=== PATIENT | male | born 1970 | race Caucasian/White ===

== ENCOUNTER 2017-02-19 08:52 | Inpatient (IN) ==
[2017-02-19 09:24] LABS: Bilirubin,Urine Negative (Negative); Blood,Urine Negative (Negative); Clarity,Urine Clear (Clear); Color,Urine Yellow (Yellow); Glucose,Urine (UA) Normal (Normal); Ketones,Urine Negative (Negative); Leukocyte Esterase,Urine Negative (Negative); Nitrite,Urine Negative (Negative); PH,Urine 5.5 pH Units (5.0-8.0); Protein,Urine Negative (Neg-Trace); Specific Gravity,Urine 1.023 (1.010-1.025); Urobilinogen,Urine Normal (Normal)
[2017-02-19] MEDS ORDERED: Ketorolac 30 MG/ML VIAL IVP ONE (11:16)
[2017-02-19] MEDS ORDERED: Ondansetron 4 MG/2 ML VIAL IVP ONE (11:16)
--- NOTE | 2017-02-19 11:22 | Emergency Department Note ---
Disposition Clinical Impression: Colonic mass Disposition: Admitted As Inpatient Referrals: Deandre Isbell DO [Primary Care Provider] - Forms: ED Satisfaction Letter Male Urogenital HPI - General Chief complaint: ED Urogenital-Male Stated complaint: poss bladder infection Time Seen by Provider: 02/19/17 09:11 Source: patient, family Mode of arrival: ambulatory Limitations: no limitations Nursing Notes Reviewed: Yes Vital Signs Reviewed: Yes - History of Present Illness HPI Narrative: Mr. Allen is a 46 yo male with no known PMHx who presents with a one week history of intermitent, sharp suprapubic pain. He states the pain comes and goes , is sharp when it happens, and causes him to double over. He localizes the pain to his suprapubic region and lower flank area. He does not feel the pain more on one side. He has had something similar in the past which resolved with a sand-like substance in his urine. He said he has a history of strong urine for which he drinks cranberry juice to resolve his symptoms. His SO at bedside states he has had this type of suprapubic discomfort on and off for 10 years. Patient has never seen a doctor for this problem. Patient has taken cleomycin from his this past week and drank cranberry juice to try to alleviate his symptoms. Nothing has really alleviate his discomfort, nor has anything exacerbated his pain. Patient denies any hematuria or dysuria. - Related Data Allergies Allergy/AdvReac Type Severity Reaction Status Date / Time No Known Allergies Allergy Verified 02/19/17 08:59 All systems ED: reviewed and negative except as stated. Constitutional: Denies: fever, weakness, weight change Genitourinary: Denies: urgency, dysuria, hematuria, discharge Past Medical History - Past Medical History Medical history: Reports: GERD, hypertension Surgical history: Reports: no surgical history - Social History Smoking Status: Current every day smoker Alcohol use: Reports: occasionally Drug use: Reports: none Physical Exam - General Limitations: no limitations General appearance: alert - Head Head exam: atraumatic, normocephalic - Eye Eye exam: Present: normal appearance - Chest Chest inspection: Present: normal inspection - Respiratory Respiratory exam: Present: normal lung sounds bilaterally. Absent: wheezes, stridor - Cardiovascular Cardiovascular exam: Present: regular rate. Absent: systolic murmur, rubs, gallop - Abdominal Exam Abdominal Exam: Present: soft, normal bowel sounds. Absent: distention, guarding, rebound Abdominal Tenderness: Present: suprapubic, mild - Back Exam Back exam: Present: other (Inferior flank pain bilaterally). Absent: CVA tenderness (R), CVA tenderness (L) - Neurological Exam Neurological exam: Present: alert, oriented X3 - Psychiatric Psychiatric exam: Present: normal affect - Skin Skin exam: Present: warm, dry Course Course Narrative: Mr. Allen is a 46 yo males with 1 week history of intermittent colicky suprapubic abdominal pain with vague history of lower bilateral flank pain. Patient seen in no acute distress. Patient's significant other reports he just had a very painful attack. Patient is hemodynamically stable. UA shows no blood , leukocytes, or glucose. Will order a CT scan of abdomen and pelvis without contrast to assess for kidney stone. Vital Signs Temperature 97.6 F 02/19/17 08:57 Pulse Rate 90 02/19/17 08:57 Respiratory Rate 18 02/19/17 08:57 Blood Pressure 148/92 02/19/17 08:57 O2 Sat by Pulse Oximetry 94 02/19/17 08:57 Temperature 97.6 F 02/19/17 08:57 Pulse Rate 92 02/19/17 12:52 Respiratory Rate 18 02/19/17 12:52 Blood Pressure 159/95 02/19/17 12:52 O2 Sat by Pulse Oximetry 96 02/19/17 12:52 Oxygen Delivery Oxygen Delivery Room Air Urogenital-Male - Medical Records Medical records reviewed: Yes I reviewed the patient's medical records. - Lab Data Lab results reviewed: Yes I reviewed the patient's lab results. Result diagrams: 02/19/17 11:33 02/19/17 11:33 Lab Results 02/19/17 02/19/17 02/19/17 Range/Units 09:05 11:33 11:33 WBC 10.8 (4.3-11.1) K/mcL RBC 5.52 H (4.19-5.50) M/mcL Hgb 15.9 (12.9-16.9) g/dL Hct 48.0 (37.5-50.1) % MCV 87.0 (83.0-100.0) fL MCH 28.8 (28.0-33.3) pg MCHC 33.1 (31.6-35.5) g/dL RDW 13.8 (11.5-14.5) % Plt Count 302 (140-400) K/mcL MPV 10.4 (9.4-12.4) fL Immature Gran % 0.6 (0-4) % Seg Neutrophils % 73.1 % Lymphocytes % 13.6 % Monocytes % 10.4 % Eosinophils % 1.8 % Basophils % 0.5 % Neutrophils # 7.9 (1.6-8.9) K/mcL Lymphocytes # 1.5 (0.6-4.6) K/mcL Monocytes # 1.1 (0.0-1.3) K/mcL Eosinophils # 0.2 (0.0-0.6) K/mcL Basophils # 0.1 (0.0-0.2) K/mcL Sodium 136 (136-145) mEq/L Potassium 3.8 (3.5-4.5) mEq/L Chloride 99 (98-109) mEq/L Carbon Dioxide 28 (19-29) mEq/L BUN 11 (8-26) mg/dL Creatinine 0.87 (0.72-1.25) mg/dL Est GFR ( Amer) > 60 (> 60) Est GFR (Non-Af Amer) > 60 (> 60) BUN/Creatinine Ratio 13 (6-26) Glucose 144 H (70-99) mg/dL Calculated Osmolality 284 (280-300) Calcium 9.5 (8.6-10.8) mg/dL Urine Color Yellow (Yellow) Urine Clarity Clear (Clear) Urine pH 5.5 (5.0-8.0) pH Units Ur Specific [place] 1.023 (1.010-1.025) Urine Protein Negative (Neg-Trace) mg/dL Urine Glucose (UA) Normal (Normal) mg/dL Urine Ketones Negative (Negative) mg/dL Urine Blood Negative (Negative) Urine Nitrite Negative (Negative) Urine Bilirubin Negative (Negative) Urine Urobilinogen Normal (Normal) mg/dL Ur Leukocyte Esterase Negative (Negative) Ur Culture Indicated? NO (NO) - Radiology Data Radiology results reviewed: Yes I reviewed the patient's radiology results. Abdomen/Pelvis CT 02/19/17 11:16 IMPRESSION: 1. Visualization of mass-like area in the rectosigmoid colon is highly suspicious for representing a neoplastic mass. Follow-up colonoscopy is recommended for more complete evaluation. 2. The abnormal mural thickening along superior margin of the anterior aspect of the urinary bladder raises the possibility of direct invasion/involvement of the bladder wall by suspected neoplastic mass. Cystoscopy may be helpful for more complete evaluation. D/ / 02/19/2017 12:26:12 Mathew Golden MD / fabio Interpreting Provider: Mathew Golden MD Attestation Statement - Attestation Attestation: I examined this patient and my medical decision-making was reviewed with the Resident Physician. I agree with the documented findings, disposition and treatment plan as described except to the extent set forth below. Patient is 46-year-old white male who presents to the emergency room today with his with a one-week history of suprapubic abdominal pain that has been intermittent and colicky in nature. Patient states he has been having mild intermittent episodes of this pain without significant urinary symptoms or change in urine color over the past week. states that this morning he woke up and had 10 out of 10 severe suprapubic abdominal pain which caused him to be diaphoretic and had some fleeting right-sided back pain associated with it. Patient denies any difficulty urinating, no dysuria or polyuria no urgency and no hematuria. Patient has no prior history of any problems. Patient denies any fevers or chills with these symptoms no nausea or vomiting, no abdominal pain or true flank pain. Patient with no other associated symptoms today and it was the severity of the pain that seemed to bring him in this morning. Physical exam findings as documented. Patient had an IV saline well-established was given pain medicines and worked up for symptoms that were suspicious for renal colic and possible kidney stone. Patient with no history of prior stones and no family history. His initial urinalysis came back completely normal with no sign of infection glucose or blood. Patient's CBC and BMP show mild hyperglycemia at 144 but otherwise within normal limits. Patient underwent noncontrast CT imaging for this suprapubic pain. Unfortunately the CT shows what appears to be an eroding mass in the rectosigmoid area with concern for erosion into the bladder wall. Findings concerning for malignancy. Patient has been hemodynamically stable throughout his ED course and at this time is resting comfortably following morphine administration. I spent time at the bedside discussing CT results with patient and his , and they agree with admission for further evaluation and treatment of CT findings. I will discuss the case with the hospitalist and patient will be admitted for further eval of rectosigmoid mass.
[2017-02-19 11:46] LABS: Basophils # 0.1 K/mcL (0.0-0.2); Basophils % 0.5 %; Eosinophils # 0.2 K/mcL (0.0-0.6); Eosinophils % 1.8 %; Hemoglobin 15.9 g/dL (12.9-16.9); Immature Granulocytes % 0.6 % (0-4); Lymphocytes # 1.5 K/mcL (0.6-4.6); Lymphocytes % 13.6 %; Mean Corpuscular HGB Conc 33.1 g/dL (31.6-35.5); Mean Corpuscular Hemoglobin 28.8 pg (28.0-33.3); Mean Platelet Volume 10.4 fL (9.4-12.4); Monocytes # 1.1 K/mcL (0.0-1.3); Monocytes % 10.4 %; Neutrophils # 7.9 K/mcL (1.6-8.9); Platelet Count 302 K/mcL (140-400); Red Blood Count 5.52 M/mcL (4.19-5.50); Red Cell Distribution Width 13.8 % (11.5-14.5); Segmented Neutrophils % 73.1 %
[2017-02-19 11:59] LABS: BUN/Creatinine Ratio 13 (6-26); Blood Urea Nitrogen 11 mg/dL (8-26); Calcium 9.5 mg/dL (8.6-10.8); Carbon Dioxide 28 mEq/L (19-29); Chloride 99 mEq/L (98-109); Glucose 144 mg/dL (70-99); Osmolality,Calculated 284 (280-300); Potassium 3.8 mEq/L (3.5-4.5); Sodium 136 mEq/L (136-145); eGFR For African Americans > 60 (> 60); eGFR For Non-African Americans > 60 (> 60)
[2017-02-19] MEDS ORDERED: *HR* Morphine 2 MG/ML SYRINGE IVP ONE (12:09)
[2017-02-19] MEDS ORDERED: Naloxone 0.4 MG/ML INJ IVP PRN (13:58)
[2017-02-19] MEDS ORDERED: *HR* HYDROcodone/Acet 5/325 mg TABLET PO PRN (14:03)
[2017-02-19] MEDS ORDERED: Ondansetron 4 MG/2 ML VIAL IVP PRN (14:03)
[2017-02-19] MEDS ORDERED: Acetaminophen 325 MG TABLET PO PRN (14:03)
[2017-02-19] MEDS ORDERED: Ondansetron ODT 4 MG TAB.RAPDIS SL PRN (14:03)
--- NOTE | 2017-02-19 14:55 | Internal Med History&Physical ---
Date of Encounter: 02/19/17 Time of Encounter: 14:52 Assessment and Plan (1) Abdominal pain Current visit: Yes Status: Acute Will admit the pt into Med Surg His abdominal pain mostly due to Recto sigmoid mass He does need Colonoscopy - for further eval I spoke to GI Dr. Le who is planning on doing colonoscopy in AM will put him on clear liquid diet for now started him on IV analgesics cont symptomatic and supportive care Spoke to pt and his at bed side and discussed about the plan of care Qualifiers: Qualified Code(s): R10.30 - Lower abdominal pain, unspecified (2) Colonic mass Current visit: Yes Status: Acute (3) Dysuria Current visit: Yes Status: Acute Reviewed CT of abd results Concern for Sigmoid mass invasing urinary bladder will consult Urology after GI evaluation cont supportive care for now Reviewed UA - no signs of inf no need of Abx No outlet obstruction noticed no need of bingham (4) Constipation due to outlet obstruction Current visit: Yes Status: Acute Does have moderate amount of stool could be due to his Recto sigmoid mass too will start him on stool softners scheduled for colonoscopy in AM (5) Hypertension Current visit: Yes Status: Acute Slightly uncontrolled due to pain cont home BP meds for now cont close monitoring Qualifiers: Qualified Code(s): I10 - Essential (primary) hypertension (6) DVT prophylaxis Current visit: Yes Status: Acute on SCD early ambulation recommended Internal Medicine - H&P: HPI Chief complaint: Lower abdominal pain Admitted From: Emergency Dept Plans for Post Hospital Care: Home History of present illness: Mr. Allen is a 46 year old male with known PMHx of HTN who presents with a one week history of intermittent, sharp supra pubic pain. He states the pain comes and goes, is sharp when it happens, and causes him to double over. He localizes the pain to his supra pubic region and lower flank area. Radiating to his groin with urination. He also mentioned he does have this kind of pain on and off for few months, but never was this bad. He also feels so relieved after each bowel movement. Denied any constipation / diarrhea. Past Med Surg Social Fam HX - Past Medical History Medical history: GERD, hypertension - Past Surgical History Surgical History: no surgical history - Social History Smoking Status: Current every day smoker Alcohol use: occasionally Drug use: none - Additional Family History Additional family history: Reviewed and non contribuitory to the current problem. Denied any rectal / colon cancer in the family Internal Medicine - H&P: Meds Losartan/HCTZ [Hyzaar 50-12.5 Tablet] 1 tab PO DAILY 02/19/17 [History] Omeprazole [PriLOSEC] 20 mg PO DAILY 02/19/17 [History] Allergies No Known Allergies Allergy (Verified 02/19/17 08:59) All Systems PM: A 10-system review of systems was performed and is negative for pertinent findings except as documented above in the HPI. Review of systems: All the systems are reviewed everything is benign except the systems and symptoms I mentioned in the history of present illness - Constitutional Vitals: Temp Pulse Resp BP Pulse Ox 97.6 F 93 18 161/92 99 02/19/17 08:57 02/19/17 14:05 02/19/17 14:05 02/19/17 14:05 02/19/17 14:05 General appearance: Present: mild distress, A&O X 3, answers questions appropriately - Head Head exam: Present: atraumatic, normal inspection - Neck Neck exam general surgery: Present: normal inspection, supple. Absent: lymphadenopathy - Respiratory Respiratory exam: Present: CTAB. Absent: accessory muscle use, rales, rhonchi, wheezes - Cardiovascular Cardiovascular exam: Present: gallop, RRR, +S1, +S2. Absent: diastolic murmur, systolic murmur - GI/Abdominal GI/Abdominal exam: Present: distended, normal bowel sounds, soft, tenderness ( Lower abdomen region). Absent: rebound, rigid - Extremities Exam Extremities exam: Absent: calf tenderness, pedal edema, tenderness - Back Exam Back exam: Absent: CVA tenderness (L), CVA tenderness (R) - Psychiatric Psychiatric exam: Present: normal affect, normal mood Internal Med - H&P Results - Labs CBC & Chem 7: 02/19/17 11:33 02/19/17 11:33 Labs: Reviewed.. UA also benign - Diagnostic Studies CT scan - abdomen Additional comments: 1. Visualization of mass-like area in the rectosigmoid colon is highly suspicious for representing a neoplastic mass. Follow-up colonoscopy is recommended for more complete evaluation. 2. The abnormal mural thickening along superior margin of the anterior aspect of the urinary bladder raises the possibility of direct invasion/involvement of the bladder wall by suspected neoplastic mass. Cystoscopy may be helpful for more complete evaluation.
[2017-02-19] MEDS: 0.9 % Sodium Chloride 1,000 ML IVC SCH (16:42)
[2017-02-19] MEDS: *HR* Morphine 2 MG/ML SYRINGE IVP PRN (17:49)
[2017-02-19] MEDS ORDERED: Polyethylene Glycol 3350 255 GM POWDER PO ONE (18:00)
[2017-02-19] MEDS: Famotidine 20 MG TABLET PO SCH (20:18)
[2017-02-20] MEDS: *HR* Morphine 2 MG/ML SYRINGE IVP PRN ×3 (00:05→11:09)
[2017-02-20] MEDS: 0.9 % Sodium Chloride 1,000 ML IVC SCH ×2 (02:50→11:49)
--- NOTE | 2017-02-20 09:05 | Gastroenterology Consult Note ---
<Fannie Sloan - Last Filed: 02/20/17 11:34> Date of Encounter: 02/20/17 Time of Encounter: 10:55 - Assessment and plan (1) Colonic mass Current Visit: Yes Status: Acute Assessment and plan: Cscope today for biopsy of suspected mass. (2) Abdominal pain Current Visit: Yes Status: Acute Qualifiers: Abdominal location: left lower quadrant Qualified Code(s): R10.32 - Left lower quadrant pain - Time Spent With Patient Total time spent is greater than 50% in coordination of care (as documented) at patient's floor/unit and/or counseling patient: less than 15 minutes GI History of Present Illness - Data of Consult Patient: new to practice Consult date: 02/20/17 Requesting Physician: Amber Curry MD - Consult Narrative Reason for consult: colonic mass History of present illness: Mr. Allen is a 46 year old male with no known PMHx who presents with a one week history of intermitent, sharp suprapubic pain. He states the pain comes and goes , is sharp when it happens, and causes him to double over. He localizes the pain to his suprapubic region and lower flank area. He does not feel the pain more on one side. He has had something similar in the past which resolved with a sand-like substance in his urine. He said he has a history of strong urine for which he drinks cranberry juice to resolve his symptoms. His SO at bedside states he has had this type of suprapubic discomfort on and off for 10 years. Patient has never seen a doctor for this problem. Patient has taken cleomycin from his this past week and drank cranberry juice to try to alleviate his symptoms. Nothing has really alleviated his discomfort, nor has anything exacerbated his pain. Patient denies any hematuria or dysuria. CT abd/pelvis without contrast in the ER showed a mass-like area in rectosigmoid colon that was highly suspicious for a neoplastic mass and abnormalities of the urinary bladder suspicious for possible direct invasion or involvement from the suspected colonic neoplastic mass. Patient states he has had frequent bowel movements and abd pain/cramping for 'years', 'all my life'. BM 4-5 x daily, loose stools brown in color, no black stools. Has seen [facility] in the past. Patient reports 'straining' to achieve a BM for 'years'. Colonoscopy: None EGD: None Past Med Surg Social Fam HX - Past Medical History Medical history: GERD, hypertension Psychiatric history: anxiety - Past Surgical History Surgical History: no surgical history - Social History Smoking Status: Current every day smoker Packs per day: 1-1.5 Alcohol use: occasionally Drug use: none - Family History Mother Living Status: Hx Family Cancer: Yes (UTERINE) - Gastrointestinal NSAID use: None Anticoagulation Use: None Number of BM Per Day: 4-5 Gastrointestinal: Present: abdominal pain, hematochezia, other Additional Comments: loose stools - Constitutional Constitutional: as per HPI - EENT Eyes: as per HPI Ears: Present: as per HPI Nose, mouth and throat: Present: as per HPI - Cardiovascular Cardiovascular ROS: Present: as per HPI - Respiratory Respiratory IM: Present: as per HPI - Neurological ROS Neurological GI: Present: as per HPI - Hematologic/Lymphatic Hematologic/Lymphatic pediatric: Present: as per HPI - Musculoskeletal Musculoskeletal ROS GI: Present: as per HPI - Integumentary Integumentary GI: Present: as per HPI - Psychiatric ROS Psychiatric GI: Present: as per HPI - Endocrine Endocrine IM: Present: as per HPI - Constitutional Vitals: Temp Pulse Resp BP Pulse Ox 97.8 F 89 18 162/101 97 02/20/17 07:10 02/20/17 07:10 02/20/17 07:10 02/20/17 07:10 02/20/17 07:10 General appearance: Present: cooperative, A&O X 3, no acute distress, answers questions appropriately - Head Head exam: Present: atraumatic, normocephalic - Eye Eye exam: Present: normal appearance, sclera anicteric - ENT ENT exam: Present: mucous membranes moist - Neck Neck exam general surgery: Present: normal inspection, trachea midline - Respiratory Respiratory exam: Present: CTAB - Cardiovascular Cardiovascular exam: Present: RRR, +S1, +S2 - GI/Abdominal GI/Abdominal exam: Present: normal bowel sounds, soft, tenderness, no peritoneal signs - Rectal Rectal exam: Present: deferred - Extremities Exam Extremities exam: Present: warm - Neurological Exam Neurological exam: Present: no focal deficits - Psychiatric Psychiatric exam: Present: normal affect, normal mood - Skin Skin exam: Present: dry, intact, normal color, warm Results - Labs CBC & Chem 7: 02/19/17 11:33 02/19/17 11:33 Labs: Last Result Calcium 9.5 mg/dL (8.6-10.8) 02/19/17 11:33 Entire Visit Hgb 15.9 g/dL (12.9-16.9) 02/19/17 11:33 Hct 48.0 % (37.5-50.1) 02/19/17 11:33 Consult Discharge Plan - Plan Referrals: Deandre Isbell DO [Primary Care Provider] - <Reza Le - Last Filed: 02/20/17 13:49> Date of Encounter: 02/20/17 Time of Encounter: 13:00 - Time Spent With Patient Total time spent is greater than 50% in coordination of care (as documented) at patient's floor/unit and/or counseling patient: GI History of Present Illness - Data of Consult Requesting Physician: Amber Curry MD - Consult Narrative History of present illness: Mr. Allen is a 46 year old male - Constitutional Vitals: Temp Pulse Resp BP Pulse Ox 98.2 F 90 20 153/79 95 02/20/17 12:40 02/20/17 12:40 02/20/17 12:40 02/20/17 12:40 02/20/17 12:40 Results - Labs CBC & Chem 7: 02/19/17 11:33 02/19/17 11:33 Labs: Last Result Calcium 9.5 mg/dL (8.6-10.8) 02/19/17 11:33 Entire Visit Hgb 15.9 g/dL (12.9-16.9) 02/19/17 11:33 Hct 48.0 % (37.5-50.1) 02/19/17 11:33 - Attending Attestation I examined this patient and my medical decision-making was reviewed with the Resident Physician. I agree with the documented findings, disposition and treatment plan as described except to the extent set forth below.
[2017-02-20] MEDS: Famotidine 20 MG TABLET PO SCH ×2 (09:12→20:37)
[2017-02-20] MEDS: Losartan/HCTZ 50-12.5 TABLET PO SCH (10:01)
--- NOTE | 2017-02-20 12:30 | Anesthesia Evaluation PreOp ---
Date of Encounter: 02/20/17 Time of Encounter: 12:30 - Past History Planned Operation: Colonoscopy Cardiac History: HTN, Hyperlipidemia Pulmonary History: Smoker MANAGER DRUG History: Denies Any Significant HX Other Medical History: GERD, Other (Obese) Anesthesia History: No Prior Anesthetic Complications Alcohol Use: occasionally Drug use: none Medications and Allergies Losartan/HCTZ [Hyzaar 50-12.5 Tablet] 1 tab PO DAILY 02/19/17 [History] Omeprazole [PriLOSEC] 20 mg PO DAILY 02/19/17 [History] Allergies No Known Allergies Allergy (Verified 02/19/17 08:59) - Meds/Allergy Pre-op Review Medications Reviewed: Yes Allergies Reviewed: Yes Beta Blockers on Current Med List: No Anesthesia Results - Labs 02/19/17 11:33 02/19/17 11:33 Anesthesia Exam O2 Sat Height 1.8 m Weight 120.4 kg Weight 121 kg O2 Sat by Pulse Oximetry 97 O2 Sat by Pulse Oximetry 97 O2 Sat by Pulse Oximetry 96 O2 Sat by Pulse Oximetry 98 O2 Sat by Pulse Oximetry 97 O2 Sat by Pulse Oximetry 99 O2 Sat by Pulse Oximetry 96 Vital Signs Temp Pulse Resp BP Pulse Ox 97.6 F 90 18 148/92 94 02/19/17 08:57 02/19/17 08:57 02/19/17 08:57 02/19/17 08:57 02/19/17 08:57 Height: 5'11 Weight: 265 lbs NPO (# of Hours): MN Pain Scale: 0 - HEENT Pupil (Motor): Pupils equal, EOMI Mallampati: III Teeth: Normal Oral Opening: Less than or equal to 3 - MANAGER DRUG LOC: Oriented MANAGER DRUG Motor: Normal RUE, Normal LUE, Normal RLE, Normal LLE, Normal Face MANAGER DRUG Sensory: Normal: RUE, LUE, RLE, LLE, Face - Cardiac Rhythm: Regular Murmur: None JVD: No Carotid Bruit: No - Pulmonary Breath Sounds: bilateral Clear Respiratory Effort: Symmetrical Anesthesia Assess/Plan ASA Score: 3 (HTN Tobacco Obese) Modified Kassidy Scale for Level of Consciousness: Cooperative, oriented, and tranquil Anesthetic Plan: MAC Monitoring Plan: Standard Monitors Recovery Plan: Other (Discussed MAC, agrees to proceed)
--- NOTE | 2017-02-20 17:35 | Internal Med Progress Note ---
Date of Encounter: 02/20/17 Time of Encounter: 08:50 - Assessment and plan (1) Colonic mass Current Visit: Yes Status: Acute Assessment and plan: Abdominal pain secondary to rectosigmoid mass CT abdomen and pelvis - mass in the rectosigmoid highly suspicious for neoplasm , abnormal mural thickening of the urinary bladder with possibility of invasion Gastroneurology consult - Dr. Le has done colonoscopy this morning Patient will need general surgery consult - discussed with Dr. Garcia Continue IV fluids, IV morphine as needed for pain, Pepcid, docusate (2) Constipation due to outlet obstruction Current Visit: Yes Status: Acute Assessment and plan: Secondary to rectosigmoid mass - continue stool softeners (3) Dysuria Current Visit: Yes Status: Acute Assessment and plan: Concern for sigmoid mass invading the urinary bladder Urology consult pending (4) Hypertension Current Visit: Yes Status: Chronic Assessment and plan: Essential hypertension - controlled, monitor, continue home meds Qualifiers: Hypertension type: essential hypertension Qualified Code(s): I10 - Essential (primary) hypertension (5) DVT prophylaxis Current Visit: Yes Status: Acute Assessment and plan: Continue SCDs, ambulate - Time Spent With Patient less than 15 minutes - Subjective Interval history: Examined this morning. Patient is awake and alert. Not in any distress. Complains of sharp suprapubic pain. It is intermittent. Rates it 6 out of 10. States this is been going on for months. Denies constipation or diarrhea. CT scan of the abdomen and pelvis revealed a mass in the rectosigmoid colon with abnormal mural thickening of the superior margin of the anterior aspect of the urinary bladder. Gastroenterology consulted, endoscopy has been done this morning. Patient will need general surgery consult. No other acute events or complaints. - Constitutional Vitals: Temp Pulse Resp BP Pulse Ox 98.3 F 83 16 138/90 97 02/20/17 14:00 02/20/17 14:00 02/20/17 14:00 02/20/17 14:00 02/20/17 14:00 General appearance: Present: A&O X 3, pleasant, no acute distress, answers questions appropriately - Head Head exam: Present: atraumatic - Eye Eye exam: Present: EOMI - Respiratory Respiratory exam: Absent: CTAB, rhonchi, stridor, wheezes - Cardiovascular Cardiovascular exam: Present: RRR, +S1, +S2 - GI/Abdominal GI/Abdominal exam: Present: soft, tenderness (Umbilical and suprapubic tenderness), no peritoneal signs. Absent: distended, firm, guarding, rigid - Extremities Exam Extremities exam: Present: radial pulses palpable and symetrical. Absent: cyanotic, pedal edema, tenderness - Neurological Exam Neurological exam: Present: alert, oriented X3, no focal deficits. Absent: facial droop, speech deficit Internal Medicine: Result - Labs CBC & Chem 7: 02/19/17 11:33 02/19/17 11:33 Consult Discharge Plan - Plan Referrals: Deandre Isbell DO [Primary Care Provider] -
[2017-02-20] MEDS ORDERED: Piperacillin/Tazobactam 3.375 GM in D5% in Water (Mini-Bag+) 100 ML IVPB STA (18:39)
--- NOTE | 2017-02-20 18:39 | General Surgery Consult Note ---
Date of Encounter: 02/20/17 Time of Encounter: 18:22 History of Present Illness Reason for consult: abdominal pain Requesting physician: Shaun Ghotra History of present illness: 46-year-old male referred to surgical services after presenting to the emergency department with approximately one-week history of suprapubic, sharp, stabbing pain. The patient complained of pain on urination. Apparently the symptoms have been waxing and waning for several months but in the last week had become particularly severe. He denies any fevers, chills, nausea, vomiting , constipation or diarrhea. CT of the abdomen and pelvis showed a normal- appearing appendix, moderate to large amount of stool within the colon and a mass like area involving the rectosigmoid. Several diverticula were also identified in this area. The dominant soft tissue nature of the findings was considered highly suspicious for a neoplasm. There was accompanying focal mural thickening of the superior aspect of the anterior urinary bladder that was immediately contiguous with this suspected mass. Several subcentimeter lymph nodes in the adjacent mesentery are described. Colonoscopy completed this morning by Dr. Le demonstrated an inflammatory mass responded to the CT findings. He was able to advance the scope beyond this mass and examine the remainder of the colon. The colonoscopy report is not available for my perusal , however, Dr Le's description of the findings suggested this mass appeared inflammatory instead of neoplastic. Past medical history: Gastritis/GERD; hypertension Surgical history: Tonsillectomy at age 7 Medications: Losartan and omeprazole Allergies: No known drug allergies Social history: Patient indicates that he quit smoking when he became ill ( approximately 1 week ago); advancement to at least 1 pack daily. He admits to alcohol approximately 3 times monthly. There is no acknowledged illicit drug use. Family history: Noncontributory. There is no known history of colon cancer or colon polyps Physical examination: Obese, age-appropriate male in no acute distress. He is comfortably seated in his hospital bed. The patient has been afebrile since admission, currently 98.3, pulse 83, respirations 16, blood pressure 138/90. SPO2 on room air 97%. He is 1.8 m tall, 120.4 kg, BMI 37.0 Skin: Warm without obvious jaundice Lungs: Clear to auscultation, no obvious abdominal pain on deep inspiration Cardiac: Regular rate, no appreciable murmurs Abdomen: Obese, tender left of midline extending to the left lower quadrant without a discernible intra-abdominal mass. The exam is limited by the patient's body habitus. Bowel sounds are active, there was no obvious rebound Extremities: Without obvious clubbing cyanosis or edema CT was personally reviewed with [facility]: White count 10.8, hemoglobin 15.9, hematocrit 48.0; platelet count 302,000; differential unremarkable Electrolytes, BUN and creatinine within normal limits Urinalysis was unremarkable - pH 5.5, Hand gravity 1.023; no glucose, ketones, blood, nitrates or bilirubin evident. No noted cellular count. Impression: A 46-year-old obese male with left lower quadrant abdominal pain and radiologic evidence of a mass at the rectosigmoid. There are concerning characteristics suggestive of neoplasm, however, colonoscopic examination suggestive of inflammatory mass such as diverticulitis. Biopsies were obtained at the time of colonoscopy, results are pending Recommendations: Maintain nothing by mouth for now Check CEA Await biopsy results Initiate antibiotic therapy Past Med Surg Social Fam HX - Past Medical History Medical history: GERD, hypertension Psychiatric history: anxiety - Past Surgical History Surgical History: no surgical history - Social History Smoking Status: Current every day smoker Packs per day: 1-1.5 Alcohol use: occasionally Drug use: none - Family History Mother Living Status: Hx Family Cancer: Yes (UTERINE) Medications and Allergies Losartan/HCTZ [Hyzaar 50-12.5 Tablet] 1 tab PO DAILY 02/19/17 [History] Omeprazole [PriLOSEC] 20 mg PO DAILY 02/19/17 [History] Allergies No Known Allergies Allergy (Verified 02/19/17 08:59) Review of Systems All systems PM: A 10-system review of systems was performed and is negative for pertinent findings except as documented above in the HPI. General Surgery Exam Initial Vital Signs Temp Pulse Resp BP Pulse Ox 97.6 F 90 18 148/92 94 02/19/17 08:57 02/19/17 08:57 02/19/17 08:57 02/19/17 08:57 02/19/17 08:57 Exam Initial Vital Signs Temp Pulse Resp BP Pulse Ox 97.6 F 90 18 148/92 94 02/19/17 08:57 02/19/17 08:57 02/19/17 08:57 02/19/17 08:57 02/19/17 08:57 Results - Labs 02/19/17 11:33 02/19/17 11:33 Abnormal lab results RBC 5.52 M/mcL (4.19-5.50) H 02/19/17 11:33 Glucose 144 mg/dL (70-99) H 02/19/17 11:33 All other labs normal. Consult Discharge Plan - Plan Referrals: Deandre Isbell DO [Primary Care Provider] -
[2017-02-20] MEDS: MetroNIDAZOLE 500 MG/100 ML 500 MG/100 ML BAG IVPB SCH (20:37)
[2017-02-20] MEDS: Piperacillin/Tazobactam 3.375 GM in D5% in Water (Mini-Bag+) 100 ML IVPB SCH (21:34)
[2017-02-21] MEDS: MetroNIDAZOLE 500 MG/100 ML 500 MG/100 ML BAG IVPB SCH ×5 (01:02→17:31)
[2017-02-21] MEDS: *HR* Morphine 2 MG/ML SYRINGE IVP PRN (01:04)
[2017-02-21] MEDS: Piperacillin/Tazobactam 3.375 GM in D5% in Water (Mini-Bag+) 100 ML IVPB SCH ×3 (02:01→19:14)
[2017-02-21 03:32] LABS: Basophils % 0.1 %; Eosinophils # 0.2 K/mcL (0.0-0.6); Eosinophils % 2.3 %; Hematocrit 41.7 % (37.5-50.1); Immature Granulocytes % 0.5 % (0-4); Lymphocytes # 1.8 K/mcL (0.6-4.6); Lymphocytes % 22.1 %; Mean Corpuscular HGB Conc 33.3 g/dL (31.6-35.5); Mean Corpuscular Hemoglobin 29.3 pg (28.0-33.3); Mean Platelet Volume 10.2 fL (9.4-12.4); Monocytes # 0.9 K/mcL (0.0-1.3); Monocytes % 11.2 %; Neutrophils # 5.1 K/mcL (1.6-8.9); Platelet Count 261 K/mcL (140-400); Red Blood Count 4.74 M/mcL (4.19-5.50); Red Cell Distribution Width 13.8 % (11.5-14.5); Segmented Neutrophils % 63.8 %
[2017-02-21 03:38] LABS: Hemoglobin 13.9 g/dL (12.9-16.9)
[2017-02-21 03:48] LABS: Alanine Aminotransferase 37 Units/L (0-55); Albumin 2.9 g/dL (3.5-5.0); Albumin/Globulin Ratio 0.9 (1.1-2.2); Alkaline Phosphatase 91 Units/L (38-126); Aspartate Amino Transferase 18 Units/L (5-34); BUN/Creatinine Ratio 10 (6-26); Bilirubin,Total 0.7 mg/dL (0.2-1.2); Blood Urea Nitrogen 8 mg/dL (8-26); Calcium 8.6 mg/dL (8.6-10.8); Carbon Dioxide 28 mEq/L (19-29); Chloride 102 mEq/L (98-109); Globulin 3.3 g/dL (2.4-3.5); Glucose 114 mg/dL (70-99); Osmolality,Calculated 285 (280-300); Potassium 3.5 mEq/L (3.5-4.5); Sodium 138 mEq/L (136-145); Total Protein 6.2 g/dL (6.0-8.3); eGFR For African Americans > 60 (> 60); eGFR For Non-African Americans > 60 (> 60)
[2017-02-21 04:08] LABS: Carcinoembryonic Antigen 1.8 ng/mL (0-5.0)
[2017-02-21] MEDS: 0.9 % Sodium Chloride 1,000 ML IVC SCH ×3 (05:31→19:16)
[2017-02-21] MEDS: Famotidine 20 MG TABLET PO SCH ×2 (10:24→21:59)
[2017-02-21] MEDS: Losartan/HCTZ 50-12.5 TABLET PO SCH (10:24)
--- NOTE | 2017-02-21 14:17 | Internal Med Progress Note ---
Date of Encounter: 02/21/17 Time of Encounter: 08:50 - Assessment and plan (1) Colonic mass Current Visit: Yes Status: Acute Assessment and plan: Abdominal pain secondary to rectosigmoid mass - CT abdomen and pelvis - mass in the rectosigmoid highly suspicious for neoplasm , abnormal mural thickening of the urinary bladder with possibility of invasion Gastroneurology consult - Dr. Le has done colonoscopy - which revealed an inflammatory mass General surgery consult - discussed with Dr. Garcia - will schedule for surgery later this week Continue IV fluids, IV morphine as needed for pain, Pepcid, docusate IV Flagyl, Zosyn (2) Constipation due to outlet obstruction Current Visit: Yes Status: Acute Assessment and plan: Secondary to rectosigmoid mass - continue stool softeners (3) Dysuria Current Visit: Yes Status: Acute Assessment and plan: Symptoms have now resolved - Concern for sigmoid mass invading the urinary bladder Will consult urology if needed (4) Hypertension Current Visit: Yes Status: Chronic Assessment and plan: Essential hypertension, controlled, monitor, continue home meds Qualifiers: Hypertension type: essential hypertension Qualified Code(s): I10 - Essential (primary) hypertension (5) DVT prophylaxis Current Visit: Yes Status: Acute Assessment and plan: Continue SCDs, ambulate - Time Spent With Patient less than 15 minutes - Subjective Interval history: Examined this morning. Patient is awake and alert. Not in any distress. Patient states his abdominal pain has now improved. Says he is hungry. Denies constipation or diarrhea. No other acute events or complaints. CT scan of the abdomen and pelvis revealed a mass in the rectosigmoid colon with abnormal mural thickening of the superior margin of the anterior aspect of the urinary bladder. Colonoscopy demonstrated an inflammatory mass. Patient has been evaluated by Dr. Nickerson, who will schedule for surgery later this week. - Constitutional Vitals: Temp Pulse Resp BP Pulse Ox 98.1 F 67 16 125/70 96 02/21/17 10:57 02/21/17 10:57 02/21/17 10:57 02/21/17 10:57 02/21/17 10:57 General appearance: Present: A&O X 3, pleasant, no acute distress, answers questions appropriately - Head Head exam: Present: atraumatic - Eye Eye exam: Present: EOMI - Neck Neck exam general surgery: Present: supple - Respiratory Respiratory exam: Present: CTAB. Absent: rales, rhonchi, stridor, wheezes, tachypnea - Cardiovascular Cardiovascular exam: Present: RRR, +S1, +S2 - GI/Abdominal GI/Abdominal exam: Present: soft, no peritoneal signs. Absent: distended, firm , guarding, rigid, tenderness - Extremities Exam Extremities exam: Present: radial pulses palpable and symetrical. Absent: cyanotic, pedal edema, tenderness - Neurological Exam Neurological exam: Present: alert, oriented X3, no focal deficits. Absent: facial droop, speech deficit Internal Medicine: Result - Labs CBC & Chem 7: 02/21/17 03:15 02/21/17 03:15 Labs: Short CBC 02/21/17 Range/Units 03:15 WBC 8.0 (4.3-11.1) K/mcL Hgb 13.9 D (12.9-16.9) g/dL Hct 41.7 (37.5-50.1) % Plt Count 261 (140-400) K/mcL Neutrophils # 5.1 (1.6-8.9) K/mcL BMP 02/21/17 03:15 Sodium 138 Potassium 3.5 Chloride 102 Carbon Dioxide 28 BUN 8 Creatinine 0.84 Glucose 114 H Calcium 8.6 Liver Function 02/21/17 Range/Units 03:15 Total Bilirubin 0.7 (0.2-1.2) mg/dL AST 18 (5-34) Units/L ALT 37 (0-55) Units/L Alkaline Phosphatase 91 (38-126) Units/L Albumin 2.9 L (3.5-5.0) g/dL Consult Discharge Plan - Plan Referrals: Deandre sIbell DO [Primary Care Provider] -
--- NOTE | 2017-02-21 14:42 | General Surgery Progress Note ---
Date of Encounter: 02/21/17 Time of Encounter: 14:37 Subjective Patient reports: feels better, pain is less Narrative: General Surgery - patient feeling better, indicates pain has resolved. Tolerating clear liquids; passing flatus; +diarrhea Afebrile, currently 98.1, pulse 67, respirations 16, blood pressure 125/70 Lungs: Clear, no obvious abdominal pain with deep inspiration Abdomen: Soft with minimal tenderness left suprapubic/left lower quadrant. Tenderness has diminished since my exam yesterday. Active bowel sounds. Laboratories: White count 8.0; hemoglobin 13.9, hematocrit 41.7; platelet count 261,000; differential remains within normal limits Electrolytes, BUN, creatinine within normal limits, potassium is borderline at 3.5. LFTs within normal limits; CEA 1.8 Pathology pending Impression: Inflammatory mass rectosigmoid - awaiting pathology results Left lower quadrant abdominal pain improved Plan: Allow full liquid diet Continue to monitor status; low anterior resection discussed in detail. Objective Vital Signs - Last 8 Hours Temp Pulse Resp BP Pulse Ox 02/21/17 10:57 98.1 F 67 16 125/70 96 Intake and Output 02/20/17 02/21/17 02/21/17 23:59 07:59 15:59 Intake Total 100 / 100 1200 / 1200 0 / 0 Output Total 0 / 0 0 / 0 Balance 100 / 100 1200 / 1200 0 / 0 Intake: IV Fluids 100 / 100 1200 / 1200 0.9 % Sodium Chloride 1, 1000 / 1000 000 ML @ 100 mls/hr IVC . Q10H [facility] Rx#:[id number] Flagyl Premix 500 MG/100 100 / 100 100 / 100 ML 500 mg In 100 ml @ 100 mls/hr IVPB Q6H [facility] Rx#: [id number] Zosyn 3.375 GM In 100 / 100 Dextrose 5% (Minibag+) 100 ML 100 ML @ 25 mls/hr IVPB Q8H [facility] Rx#: [id number] Oral 0 / 0 0 / 0 Output: Urine 0 / 0 0 / 0 Other: Meal NPO NPO Percent of Meal Consumed 0% 0% Weight 120.202 kg Blood Glucose* 90 Patient Weight 02/21/17 23:59 Weight 120.202 kg - Labs 02/21/17 03:15 02/21/17 03:15 Diabetes panel 02/21/17 Range/Units 03:15 Sodium 138 (136-145) mEq/L Potassium 3.5 (3.5-4.5) mEq/L Chloride 102 (98-109) mEq/L Carbon Dioxide 28 (19-29) mEq/L BUN 8 (8-26) mg/dL Creatinine 0.84 (0.72-1.25) mg/dL Glucose 114 H (70-99) mg/dL Calcium 8.6 (8.6-10.8) mg/dL AST 18 (5-34) Units/L ALT 37 (0-55) Units/L Alkaline Phosphatase 91 (38-126) Units/L Albumin 2.9 L (3.5-5.0) g/dL Calcium panel 02/21/17 Range/Units 03:15 Calcium 8.6 (8.6-10.8) mg/dL Albumin 2.9 L (3.5-5.0) g/dL Pituitary panel 02/21/17 Range/Units 03:15 Sodium 138 (136-145) mEq/L Potassium 3.5 (3.5-4.5) mEq/L Chloride 102 (98-109) mEq/L Carbon Dioxide 28 (19-29) mEq/L BUN 8 (8-26) mg/dL Creatinine 0.84 (0.72-1.25) mg/dL Glucose 114 H (70-99) mg/dL Calcium 8.6 (8.6-10.8) mg/dL Adrenal panel 02/21/17 Range/Units 03:15 Sodium 138 (136-145) mEq/L Potassium 3.5 (3.5-4.5) mEq/L Chloride 102 (98-109) mEq/L Carbon Dioxide 28 (19-29) mEq/L BUN 8 (8-26) mg/dL Creatinine 0.84 (0.72-1.25) mg/dL Glucose 114 H (70-99) mg/dL Calcium 8.6 (8.6-10.8) mg/dL Total Bilirubin 0.7 (0.2-1.2) mg/dL AST 18 (5-34) Units/L ALT 37 (0-55) Units/L Alkaline Phosphatase 91 (38-126) Units/L Albumin 2.9 L (3.5-5.0) g/dL Consult Discharge Plan - Plan Referrals: Deandre Isbell DO [Primary Care Provider] -
[2017-02-22] MEDS: MetroNIDAZOLE 500 MG/100 ML 500 MG/100 ML BAG IVPB SCH ×4 (00:47→20:02)
[2017-02-22] MEDS: Piperacillin/Tazobactam 3.375 GM in D5% in Water (Mini-Bag+) 100 ML IVPB SCH ×3 (03:51→20:02)
[2017-02-22 04:13] LABS: Basophils % 0.4 %; Eosinophils # 0.2 K/mcL (0.0-0.6); Eosinophils % 2.7 %; Hematocrit 38.4 % (37.5-50.1); Immature Granulocytes % 0.3 % (0-4); Lymphocytes % 25.4 %; Mean Corpuscular HGB Conc 33.9 g/dL (31.6-35.5); Mean Corpuscular Hemoglobin 29.6 pg (28.0-33.3); Mean Corpuscular Volume 87.5 fL (83.0-100.0); Mean Platelet Volume 10.5 fL (9.4-12.4); Monocytes # 0.8 K/mcL (0.0-1.3); Monocytes % 10.9 %; Neutrophils # 4.7 K/mcL (1.6-8.9); Platelet Count 241 K/mcL (140-400); Red Blood Count 4.39 M/mcL (4.19-5.50); Red Cell Distribution Width 13.8 % (11.5-14.5); Segmented Neutrophils % 60.3 %
[2017-02-22 04:14] LABS: INR 1.1; Prothrombin Time 11.9 Seconds (9.4-12.1)
[2017-02-22] MEDS: Losartan/HCTZ 50-12.5 TABLET PO SCH (07:37)
[2017-02-22] MEDS: Famotidine 20 MG TABLET PO SCH ×2 (07:38→22:35)
[2017-02-22] MEDS: 0.9 % Sodium Chloride 1,000 ML IVC SCH (09:02)
--- NOTE | 2017-02-22 13:59 | General Surgery Progress Note ---
Date of Encounter: 02/22/17 Time of Encounter: 13:55 Subjective Patient reports: feels better, tolerating liquids well Narrative: General Surgery - patient feeling much improved; requesting regular diet Afebrile, currently 97.7, pulse 75, respirations 18, blood pressure 137/93. Left lower quadrant abdominal pain resolved Lungs: Clear Abdomen: Obese but soft, nontender Endoscopy pathology pending Laboratories: White count 7.7, hemoglobin 13.0, hematocrit 38.4. Impression: Mass rectosigmoid of undetermined etiology. Neoplastic versus inflammatory. Awaiting pathology/colonic biopsies obtained during recent colonoscopy Plan: Repeat CT abdomen and pelvis with oral and IV contrast in the a.m. Maintain full liquid diet for the time being Objective Vital Signs - Last 8 Hours Temp Pulse Resp BP Pulse Ox 02/22/17 11:43 97.7 F 75 18 137/93 96 02/22/17 07:33 97.5 F L 73 18 122/84 95 Intake and Output 02/21/17 02/22/17 02/22/17 23:59 07:59 15:59 Intake Total 1500 / 1500 1500 / 1500 580 / 580 Output Total 550 / 550 900 / 900 Balance 950 / 950 600 / 600 580 / 580 Intake: IV Fluids 900 / 900 1500 / 1500 0.9 % Sodium Chloride 1, 900 / 900 1000 / 1000 000 ML @ 100 mls/hr IVC . Q10H [facility] Rx#:[id number] Flagyl Premix 500 MG/100 300 / 300 ML 500 mg In 100 ml @ 100 mls/hr IVPB Q6H [facility] Rx#: [id number] Zosyn 3.375 GM In 200 / 200 Dextrose 5% (Minibag+) 100 ML 100 ML @ 25 mls/hr IVPB Q8H [facility] Rx#: [id number] Oral 600 / 600 580 / 580 Output: Urine 550 / 550 900 / 900 Other: Meal Dinner Breakfast Weight 120.95 kg Patient Weight 02/22/17 23:59 Weight 120.95 kg - Labs 02/22/17 03:50 02/21/17 03:15 Consult Discharge Plan - Plan Referrals: Deandre Isbell DO [Primary Care Provider] -
--- NOTE | 2017-02-22 14:13 | Internal Med Progress Note ---
Date of Encounter: 02/22/17 Time of Encounter: 09:30 - Assessment and plan (1) Colonic mass Current Visit: Yes Status: Acute Assessment and plan: Abdominal pain secondary to rectosigmoid mass CT abdomen and pelvis - mass in the rectosigmoid highly suspicious for neoplasm , abnormal mural thickening of the urinary bladder with possibility of invasion Gastroneurology consult - Dr. Le has done colonoscopy - which revealed an inflammatory mass General surgery consult - discussed with Dr. Garcia - will schedule for surgery later this week Continue IV fluids, IV morphine as needed for pain, Pepcid, docusate IV Flagyl, Zosyn, full liquid diet Pathology report pending (2) Constipation due to outlet obstruction Current Visit: Yes Status: Acute Assessment and plan: Secondary to rectosigmoid mass - continue stool softeners (3) Dysuria Current Visit: Yes Status: Acute Assessment and plan: Symptoms have now resolved - Concern for sigmoid mass invading the urinary bladder Will consult urology if needed (4) Hypertension Current Visit: Yes Status: Chronic Assessment and plan: Essential hypertension, controlled, monitor, continue home meds Qualifiers: Hypertension type: essential hypertension Qualified Code(s): I10 - Essential (primary) hypertension (5) DVT prophylaxis Current Visit: Yes Status: Acute Assessment and plan: Continue SCDs, ambulate - Time Spent With Patient 25 - 35 minutes - Subjective Interval history: Examined this morning. Patient is awake and alert. Not in any distress. Patient states his abdominal pain has now improved. Tolerating full liquid diet. Denies constipation or diarrhea. No other acute events or complaints. CT scan of the abdomen and pelvis revealed a mass in the rectosigmoid colon with abnormal mural thickening of the superior margin of the anterior aspect of the urinary bladder. Colonoscopy demonstrated an inflammatory mass. Patient has been evaluated by Dr. Garcia, who will schedule for surgery later this week. Pathology report pending. - Constitutional Vitals: Temp Pulse Resp BP Pulse Ox 97.7 F 75 18 137/93 96 02/22/17 11:43 02/22/17 11:43 02/22/17 11:43 02/22/17 11:43 02/22/17 11:43 General appearance: Present: A&O X 3, pleasant, no acute distress, answers questions appropriately - Head Head exam: Present: atraumatic - Eye Eye exam: Present: EOMI - ENT ENT exam: Present: mucous membranes moist - Neck Neck exam general surgery: Present: supple - Respiratory Respiratory exam: Present: CTAB. Absent: rales, rhonchi, stridor, wheezes, tachypnea - Cardiovascular Cardiovascular exam: Present: RRR, +S1, +S2 - GI/Abdominal GI/Abdominal exam: Present: soft, no peritoneal signs. Absent: distended, firm , guarding, rigid, tenderness - Extremities Exam Extremities exam: Present: radial pulses palpable and symetrical. Absent: cyanotic, pedal edema, tenderness - Neurological Exam Neurological exam: Present: alert, oriented X3, no focal deficits Internal Medicine: Result - Labs CBC & Chem 7: 02/22/17 03:50 02/21/17 03:15 Labs: Short CBC 02/22/17 Range/Units 03:50 WBC 7.7 (4.3-11.1) K/mcL Hgb 13.0 (12.9-16.9) g/dL Hct 38.4 (37.5-50.1) % Plt Count 241 (140-400) K/mcL Neutrophils # 4.7 (1.6-8.9) K/mcL - ABG Interpretation ABG results: PT/INR, D-dimer PT 11.9 Seconds (9.4-12.1) 02/22/17 03:50 Consult Discharge Plan - Plan Referrals: Deandre Isbell DO [Primary Care Provider] -
[2017-02-23] MEDS ORDERED: 0.9 % Sodium Chloride 1,000 ML ONE ×2 (00:11→12:08)
[2017-02-23] MEDS: MetroNIDAZOLE 500 MG/100 ML 500 MG/100 ML BAG IVPB SCH ×4 (00:14→18:32)
[2017-02-23] MEDS: Piperacillin/Tazobactam 3.375 GM in D5% in Water (Mini-Bag+) 100 ML IVPB SCH ×3 (03:58→18:39)
[2017-02-23] MEDS: Famotidine 20 MG TABLET PO SCH ×2 (08:28→21:15)
[2017-02-23] MEDS: Losartan/HCTZ 50-12.5 TABLET PO SCH (08:28)
[2017-02-23] MEDS ORDERED: *HR* Propofol 500 MG/50 ML BOTTLE IVC ONE (09:55)
[2017-02-23] MEDS ORDERED: Lidocaine -MPF 2% 5 ML VIAL INFILT ONE (09:55)
--- NOTE | 2017-02-23 13:45 | Internal Med Progress Note ---
Date of Encounter: 02/23/17 Time of Encounter: 08:40 - Assessment and plan (1) Colonic mass Current Visit: Yes Status: Acute Assessment and plan: Abdominal pain - secondary to rectosigmoid mass CT abdomen and pelvis - mass in the rectosigmoid highly suspicious for neoplasm , abnormal mural thickening of the urinary bladder with possibility of invasion Gastroneurology consult - Dr. Le has done colonoscopy - which revealed an inflammatory mass General surgery consult - discussed with Dr. Garcia - will schedule for surgery Continue IV fluids, IV morphine as needed for pain, Pepcid, docusate IV Flagyl, Zosyn, full liquid diet Pathology report reveals hyperplastic polyp (2) Constipation due to outlet obstruction Current Visit: Yes Status: Acute Assessment and plan: Secondary to rectosigmoid mass - continue stool softeners (3) Dysuria Current Visit: Yes Status: Acute Assessment and plan: Symptoms have now resolved - Concern for sigmoid mass invading the urinary bladder Will consult urology if needed (4) Hypertension Current Visit: Yes Status: Chronic Assessment and plan: Essential hypertension, controlled, monitor, continue home meds Qualifiers: Hypertension type: essential hypertension Qualified Code(s): I10 - Essential (primary) hypertension (5) DVT prophylaxis Current Visit: Yes Status: Acute Assessment and plan: Continue SCDs, ambulate - Time Spent With Patient 25 - 35 minutes - Subjective Interval history: Examined this morning. Patient is awake and alert. Not in any distress. Denies chest pain or shortness of breath. Complains of of abdominal pain that is cramping at times. Complains of mild diarrhea. No fever. No other acute events or complaints. CT scan of the abdomen and pelvis revealed a mass in the rectosigmoid colon with abnormal mural thickening of the superior margin of the anterior aspect of the urinary bladder. Colonoscopy demonstrated an inflammatory mass. Patient has been evaluated by Dr. Garcia, who will schedule for surgery later this week. Pathology report reveals hyperplastic polyp. - Constitutional Vitals: Temp Pulse Resp BP Pulse Ox 97.9 F 67 15 142/92 98 02/23/17 12:20 02/23/17 12:20 02/23/17 12:20 02/23/17 12:20 02/23/17 12:20 General appearance: Present: A&O X 3, pleasant, no acute distress, answers questions appropriately - Head Head exam: Present: atraumatic - Eye Eye exam: Present: EOMI - ENT ENT exam: Present: mucous membranes moist - Neck Neck exam general surgery: Present: supple - Respiratory Respiratory exam: Present: CTAB. Absent: rhonchi, stridor, wheezes, tachypnea - Cardiovascular Cardiovascular exam: Present: RRR, +S1, +S2 - GI/Abdominal GI/Abdominal exam: Present: soft, tenderness (Mild umbilical region tenderness) , no peritoneal signs. Absent: distended, firm, guarding, rigid - Extremities Exam Extremities exam: Present: radial pulses palpable and symetrical. Absent: cyanotic, pedal edema, tenderness - Neurological Exam Neurological exam: Present: alert, oriented X3, no focal deficits Internal Medicine: Result - Labs CBC & Chem 7: 02/22/17 03:50 02/21/17 03:15 - ABG Interpretation ABG results: PT/INR, D-dimer PT 11.9 Seconds (9.4-12.1) 02/22/17 03:50 - Impressions Impressions Abdomen/Pelvis CT 02/23/17 09:30 IMPRESSION: Large area of abnormal soft tissue density in the region of the sigmoid colon with lobulated margins extending into the lumen. This is concerning for a large neoplasm. There is associated stranding in the adjacent fat and numerous sigmoid diverticula. There are also numerous associated small adjacent lymph nodes. There is questionable wall thickening in a short segment of small bowel adjacent to the rightward aspect of this lesion. There is also questionable wall thickening in the dome of the bladder. D/ / Josh Davis / Josh Davis Interpreting Provider: Josh Davis Consult Discharge Plan - Plan Referrals: Deandre Isbell DO [Primary Care Provider] -
[2017-02-23] MEDS: 0.9 % Sodium Chloride 1,000 ML IVC SCH (18:33)
--- NOTE | 2017-02-23 22:19 | General Surgery Progress Note ---
Date of Encounter: 02/23/17 Time of Encounter: 22:09 Subjective Narrative: General Surgery - this is a delayed dictation as the patient was initially seen and evaluated approx [address] reviewed with [facility]. The CT of the abd/pelvis is essentially unchanged with comparison to study dated 02/19. Colonoscopic biopsies show hyperplastic tissue - with the neoplasm detected. Despite these results, neoplasm cannot be excluded The CT shows a large area of abnormal soft tissue density in the region of the sigmoid colon. Lobulated margins extending into the lumen are described but these findings were not completely observed on recent colonoscopy. Associated stranding into the adjacent fat with numerous sigmoid diverticula. is Numerous associated small adjacent lymph nodes persist but may be reactive to the adjacent inflammation rather than indicative of neoplasm. Possible wall thickening and a short segment of small bowel immediately adjacent to the sigmoid colon as well as wall thickening in the dome of the bladder also adjacent to the sigmoid colon is again noted. Unable to differentiate whether these are responses to adjacent inflammation or a Neoplastic process. An extended discussion was completed with the patient. He feels well, previous complaints of crampy abdominal pain following a full liquid meal have subsided. Patient has no complaints this evening. Surgery to be scheduled in the next few days. We have again discussed open sigmoid colectomy with planned colo colonic anastomosis. Possible end colostomy was also discussed. Objective Vital Signs - Last 8 Hours Temp Pulse Resp BP Pulse Ox 02/23/17 19:31 98.4 F 72 15 127/80 96 02/23/17 14:56 98.5 F 68 15 129/87 98 Intake and Output 02/23/17 02/23/17 02/23/17 07:59 15:59 23:59 Intake Total 200 / 200 300 / 300 580 / 580 Output Total 150 / 150 450 / 450 0 / 0 Balance 50 / 50 -150 / -150 580 / 580 Intake: IV Fluids 200 / 200 300 / 300 100 / 100 Flagyl Premix 500 MG/100 200 / 200 100 / 100 ML 500 mg In 100 ml @ 100 mls/hr IVPB Q6H [facility] Rx#: [id number] Zosyn 3.375 GM In 200 / 200 100 / 100 Dextrose 5% (Minibag+) 100 ML 100 ML @ 25 mls/hr IVPB Q8H [facility] Rx#: [id number] Oral 0 / 0 0 / 0 480 / 480 Output: Urine 150 / 150 450 / 450 0 / 0 Other: Meal NPO Dinner # Voids 1 Blood Glucose* 90 - Labs 02/22/17 03:50 02/21/17 03:15 Consult Discharge Plan - Plan Referrals: Deandre Isbell DO [Primary Care Provider] -
[2017-02-24] MEDS: MetroNIDAZOLE 500 MG/100 ML 500 MG/100 ML BAG IVPB SCH ×4 (00:24→18:38)
[2017-02-24] MEDS: Piperacillin/Tazobactam 3.375 GM in D5% in Water (Mini-Bag+) 100 ML IVPB SCH ×3 (03:30→18:38)
[2017-02-24] MEDS: Famotidine 20 MG TABLET PO SCH ×2 (08:29→21:02)
[2017-02-24] MEDS: Losartan/HCTZ 50-12.5 TABLET PO SCH (08:29)
--- NOTE | 2017-02-24 12:00 | General Surgery Progress Note ---
Date of Encounter: 02/24/17 Time of Encounter: 11:54 Subjective Narrative: General Surgery - feeling well, no compliants Anxious to proceed with surgery. Lungs:clear bilaterally Cardiac: regular rate, no appreciable murmurs Abdomen: obese, soft, non tender. No appreciable intra abdominal masses. No rebound CT abdomen and pelvis completed yesterday was reviewed with [facility] The findings were discussed in detail with the patient Surgery - open sigmoid colectomy or low anterior resection was discussed in detail once again. Offers to consider laparoscopic or robotic surgery were declined. The procedure was discussed in detail. Risks include hemorrhage, infection, intra-abdominal abscess, injury to adjacent organs such as adjacent bowel, bladder, ureters, spleen, pneumonia/respiratory failure, cardiac dysrhythmia, DE. We also discussed potential for a colostomy, and anastomotic leak, stricture, or disruption should a colocolonic anastomosis be created. The patient expressed understanding, I attempted to answer all his questions, surgery is planned for the a.m. Consent has been obtained. Objective Vital Signs - Last 8 Hours Temp Pulse Resp BP Pulse Ox 02/24/17 10:39 97.6 F 106 16 125/87 97 02/24/17 06:36 98.3 F 87 16 119/84 98 02/24/17 04:40 98.0 F 82 16 117/80 98 Intake and Output 02/23/17 02/24/17 02/24/17 23:59 07:59 15:59 Intake Total 680 / 680 100 / 100 560 / 560 Output Total 0 / 0 Balance 680 / 680 100 / 100 560 / 560 Intake: IV Fluids 200 / 200 100 / 100 200 / 200 Flagyl Premix 500 MG/100 100 / 100 100 / 100 100 / 100 ML 500 mg In 100 ml @ 100 mls/hr IVPB Q6H JESÚS Rx#: [id number] Zosyn 3.375 GM In 100 / 100 100 / 100 Dextrose 5% (Minibag+) 100 ML 100 ML @ 25 mls/hr IVPB Q8H JESÚS Rx#: [id number] Oral 480 / 480 0 / 0 360 / 360 Output: Urine 0 / 0 Other: Meal Dinner Breakfast # Voids 1 Weight 120.8 kg Patient Weight 02/24/17 23:59 Weight 120.8 kg - Labs 02/22/17 03:50 08/02/17 03:15 Consult Discharge Plan - Plan Referrals: Deandre Isbell DO [Primary Care Provider] -
--- NOTE | 2017-02-24 14:00 | Internal Med Progress Note ---
Date of Encounter: 02/24/17 Time of Encounter: 08:30 - Assessment and plan (1) Colonic mass Current Visit: Yes Status: Acute Assessment and plan: Abdominal pain - secondary to rectosigmoid mass CT abdomen and pelvis - mass in the rectosigmoid highly suspicious for neoplasm , abnormal mural thickening of the urinary bladder with possibility of invasion Gastroneurology consult - Dr. Le has done colonoscopy - which revealed an inflammatory mass General surgery consult - discussed with Dr. Garcia - surgery planned for tomorrow morning Continue IV fluids, IV morphine as needed for pain, Pepcid, docusate IV Flagyl, Zosyn, clear liquid diet Pathology report reveals hyperplastic polyp (2) Constipation due to outlet obstruction Current Visit: Yes Status: Acute Assessment and plan: Secondary to rectosigmoid mass - continue stool softeners (3) Dysuria Current Visit: Yes Status: Acute Assessment and plan: Symptoms have now resolved - Concern for sigmoid mass invading the urinary bladder Will consult urology if needed (4) Hypertension Current Visit: Yes Status: Chronic Assessment and plan: Essential hypertension, controlled, monitor, continue home meds Qualifiers: Hypertension type: essential hypertension Qualified Code(s): I10 - Essential (primary) hypertension (5) DVT prophylaxis Current Visit: Yes Status: Acute Assessment and plan: Continue SCDs, patient ambulating well - Time Spent With Patient 25 - 35 minutes - Subjective Interval history: Examined this morning. Patient is awake and alert. Not in any distress. Denies chest pain or shortness of breath. Patient states his abdominal pain and diarrhea now improved. No fever. No other acute events or complaints. CT scan of the abdomen and pelvis revealed a mass in the rectosigmoid colon with abnormal mural thickening of the superior margin of the anterior aspect of the urinary bladder. Colonoscopy demonstrated an inflammatory mass. Patient has been evaluated by Dr. Garcia, who has scheduled the patient for surgery tomorrow. Pathology report reveals hyperplastic polyp. - Constitutional Vitals: Temp Pulse Resp BP Pulse Ox 97.6 F 106 16 125/87 97 02/24/17 10:39 02/24/17 10:39 02/24/17 10:39 02/24/17 10:39 02/24/17 10:39 General appearance: Present: A&O X 3, pleasant, no acute distress, answers questions appropriately - Head Head exam: Present: atraumatic - Eye Eye exam: Present: EOMI - ENT ENT exam: Present: mucous membranes moist - Neck Neck exam general surgery: Present: supple - Respiratory Respiratory exam: Present: CTAB. Absent: rales, rhonchi, wheezes, tachypnea - Cardiovascular Cardiovascular exam: Present: RRR, +S1, +S2 - GI/Abdominal GI/Abdominal exam: Present: soft. Absent: distended, firm, guarding, tenderness - Extremities Exam Extremities exam: Present: radial pulses palpable and symetrical. Absent: cyanotic, pedal edema, tenderness - Neurological Exam Neurological exam: Present: alert, oriented X3, no focal deficits Internal Medicine: Result - Labs CBC & Chem 7: 02/22/17 03:50 02/21/17 03:15 - ABG Interpretation ABG results: PT/INR, D-dimer PT 11.9 Seconds (9.4-12.1) 02/22/17 03:50 Consult Discharge Plan - Plan Referrals: Deandre Isbell DO [Primary Care Provider] -
[2017-02-25] MEDS: MetroNIDAZOLE 500 MG/100 ML 500 MG/100 ML BAG IVPB SCH ×3 (01:08→18:20)
[2017-02-25] MEDS: Piperacillin/Tazobactam 3.375 GM in D5% in Water (Mini-Bag+) 100 ML IVPB SCH ×2 (02:36→18:21)
--- NOTE | 2017-02-25 07:19 | Anesthesia Evaluation PreOp ---
Date of Encounter: 02/25/17 Time of Encounter: 07:17 - Past History Planned Operation: Sigmoid Colectomy Cardiac History: HTN, Hyperlipidemia Pulmonary History: Smoker COMPENSATION ADVISOR History: Denies Any Significant HX Other Medical History: GERD Anesthesia History: No Prior Anesthetic Complications, Past Anesthesia ( Tosillectomy, Colonoscopy) Alcohol Use: occasionally Drug use: none Medications and Allergies Losartan/HCTZ [Hyzaar 50-12.5 Tablet] 1 tab PO DAILY 02/19/17 [History] Omeprazole [PriLOSEC] 20 mg PO DAILY 02/19/17 [History] Allergies No Known Allergies Allergy (Verified 02/19/17 08:59) - Meds/Allergy Pre-op Review Medications Reviewed: Yes Allergies Reviewed: Yes Beta Blockers on Current Med List: No Anesthesia Results - Labs 02/22/17 03:50 02/21/17 03:15 Anesthesia Exam O2 Sat Weight 120.61 kg O2 Sat by Pulse Oximetry 94 O2 Sat by Pulse Oximetry 97 O2 Sat by Pulse Oximetry 96 O2 Sat by Pulse Oximetry 98 O2 Sat by Pulse Oximetry 98 O2 Sat by Pulse Oximetry 97 Vital Signs Temp Pulse Resp BP Pulse Ox 97.6 F 90 18 148/92 94 02/19/17 08:57 02/19/17 08:57 02/19/17 08:57 02/19/17 08:57 02/19/17 08:57 Vital Signs/O2 Sat, Most Current Temp Pulse Resp BP Pulse Ox 97.4 F L 66 18 105/73 94 02/25/17 04:17 02/25/17 04:17 02/25/17 04:17 02/25/17 04:17 02/25/17 04:17 Height: 5'11'' Weight: 265# NPO (# of Hours): > 8 hr Pain Scale: 0 Pain Scale Used: Numeric (1 - 10) - HEENT Pupil (Motor): Pupils equal, EOMI Mallampati: III Teeth: Normal Oral Opening: Greater than 3 - COMPENSATION ADVISOR LOC: Oriented COMPENSATION ADVISOR Motor: Normal RUE, Normal LUE, Normal RLE, Normal LLE, Normal Face COMPENSATION ADVISOR Sensory: Normal: RUE, LUE, RLE, LLE, Face - Cardiac Rhythm: Regular Murmur: None JVD: No Carotid Bruit: No - Pulmonary Breath Sounds: bilateral Clear Respiratory Effort: Symmetrical Anesthesia Assess/Plan ASA Score: 3 Modified [place] Scale for Level of Consciousness: Cooperative, oriented, and tranquil Anesthetic Plan: General Autologous Blood: Yes Monitoring Plan: Standard Monitors Recovery Plan: PACU
[2017-02-25] MEDS ORDERED: *HR* Labetalol 20 MG/4 ML SYRINGE IVP PRN (07:21)
[2017-02-25] MEDS ORDERED: *HR* HYDROmorphone (PF) 1 MG/ML SYRINGE IVP PRN (07:21)
[2017-02-25] MEDS ORDERED: *HR* Promethazine 25 MG/ML VIAL IVP PRN (07:21)
[2017-02-25] MEDS ORDERED: Ondansetron 4 MG/2 ML VIAL IVP ONE (07:21)
[2017-02-25] MEDS ORDERED: Albuterol 2.5 MG/3 ML NEBULIZER ONE (07:25)
[2017-02-25] MEDS: Albuterol 2.5 MG/3 ML NEBULIZER IH ONE ×2 (07:28→16:31)
[2017-02-25] MEDS ORDERED: Lidocaine -MPF 2% 2 ML VIAL ONE (07:34)
[2017-02-25] MEDS ORDERED: Ondansetron 4 MG/2 ML VIAL ONE (07:34)
[2017-02-25] MEDS ORDERED: *HR* Rocuronium Bromide 50 MG/5 ML VIAL ONE ×3 (07:34→12:11)
[2017-02-25] MEDS ORDERED: *HR* Succinylcholine 200 MG/10 ML VIAL IVP ONE (07:34)
[2017-02-25] MEDS ORDERED: *HR* Midazolam HCl 2 MG/2 ML VIAL ONE (07:34)
[2017-02-25] MEDS ORDERED: *HR* FentaNYL (PF) 100 MCG/2 ML VIAL ONE ×2 (07:34→08:55)
[2017-02-25] MEDS ORDERED: *HR* Propofol 200 MG/20 ML VIAL IVP ONE (07:34)
[2017-02-25] MEDS ORDERED: Dexamethasone 4 MG/ML VIAL ONE (07:34)
[2017-02-25] MEDS ORDERED: EPHEDrine 50 MG/ML VIAL ONE (08:45)
[2017-02-25] MEDS ORDERED: *HR* HYDROmorphone 2 MG/ML SYRINGE ONE (09:26)
[2017-02-25] MEDS ORDERED: *HR* Phenylephrine 10 MG/ML VIAL ONE (12:16)
--- NOTE | 2017-02-25 13:13 | Operative Note ---
Date of procedure: 02/25/17 Pre-op diagnosis: Left ureteral transection Post-op diagnosis: same Procedure: Left uretero-ureterostomy Implants: 6 Nigerien x 26cm JJ stent. Camacho catheter. 19 Nigerien Blank drain Complications: none Anesthesia: GETA Surgeon: Jamey Connolly Specimen: left ureter Condition: stable Disposition: PACU Procedure in Detail: Indications: Roque is a 46-year-old man who is undergoing a left hemicolectomy for possible diverticulitis versus a colonic mass. During the surgery the sigmoid colon was densely adherent to the pelvic sidewall. During the dissection, Dr. Garcia transected the left ureter. He had identified this and called me to evaluate. Upon my arrival he showed me the suspected ureter. I spoke with the patient's and informed her of the need to perform a ureteral reimplantation. I then return to the operating room for the surgery. Procedure: Mr. Allen was already on the operating room table. A midline laparotomy had been performed. A Bacliff clamp was placed around the distal left ureter. The proximal portion of the left ureter was not identified at that time. I then proceeded to do a cystoscopy. Cystoscopy was then performed. The anterior urethra was unremarkable. The prostate showed trilobar hyperplasia. Upon entering the bladder there is no evidence of blood coming down either ureter. The left ureter was cannulated with an open ended catheter and it passed into the operating field. I did cannulate the right ureter at the end the case and the catheter passed easily all the way up to the kidney without any evidence of injury to the ureter. The scope was then removed and a Camacho catheter was then placed. I then returned to the open operating field. Dissection proceeded to identify the proximal portion of the left ureter. I identified the gonadal vein and dissected this down to the pelvis to an area over top of the bifurcation of the iliac vessels which was densely adherent. The ureter was not identified around the gonadal vessel. The left gonadal vein did bleed. I placed clips across it distally and proximally and divided it. As I dissected around the packet which contain the gonadal vein and did not identify a ureter. I then identified a packet of tissue deeper. This was dissected free and I proceeded up proximally and identified the psoas muscle. This packet tissue was freed off the psoas muscle. During this time a small vessel began to bleed off of the mesentery from the previously resected sigmoid colon. This was oversewn by Dr. Garcia using a silk suture. I was able to identify the proximal portion of the transected left ureter within this new packet of tissue. An open lumen was identified. The ureter was not distended. I then proceeded to cut the distal end of the ureter on the proximal portion to have a clean edge. The ureter was then spatulated using Pott scissors. I repeated this along the distal ureter cutting the transected edge to have a fresh cut. It appeared to be bleeding at the end of the ureter. The ureter was spatulated here. A uretero-ureterostomy was then performed using interrupted 5-0 Vicryl suture. The left side of the ureter was reanastomosed using the interrupted 5-0 Vicryl suture. I then switched sides of the operating table. A 6 Nigerien by 26 cm double -J stent was then placed. The right side of the ureter was then sutured back together using interrupted 5-0 Vicryl sutures. The anastomosis came together nicely. Cystoscopy was then performed. The stent was seen in the bladder coming out of the left ureteral orifice. The right ureter was cannulated at this point with the open-end catheter and this passed without any difficulty towards the kidney. The scope was then removed and the catheter was replaced. At this point Dr. Garcia took over the remainder portion of the case. I advised him to place a 19 Nigerien Betito drain at the end.
--- NOTE | 2017-02-25 15:15 | Operative Note ---
Date of procedure: 02/25/17 Pre-op diagnosis: rectosigmoid mass Post-op diagnosis: same Procedure: exploratory celiotomy, lysis adhesions x 150 minutes, sigmoid colectomy with stapled coloanal colonic anastomosis; small bowel resection with stapled enteroenterostomy; incidental appendectomy; intraoperative rigid sigmoidoscopy. Repair of transected left ureter Complications: Transected left ureter Anesthesia: LESLIE Surgeon: Sanjay Garcia Co-Surgeon: Jamey Connolly Estimated blood loss (cc): 1,000 IV fluids (cc): 6,200 Specimen: sigmoid colon, appendix, small bowel segment; anastomotic rings, ureter Condition: stable Disposition: PACU Procedure in Detail: The patient was brought to the operating room where he was placed supine upon the operating room table. The patient was appropriately identified as to person and procedure. The accuracy of this information was confirmed by the procedure team. The patient was then intubated and anesthetized under the supervision of Dr. Naif Tao. The patient was placed in low lithotomy using yellowfin stirrups. A Camacho catheter was inserted. The perineum was prepped with Betadine, the anterior abdomen was prepped with chlorhexidine. The patient was draped in the usual sterile fashion. A midline incision was made from just above the umbilicus to the pubic tubercle. Dissection was carried to the fascia. Bleeding points were controlled with electrocautery. The fascia was incised, the abdomen entered atraumatically. Exposure was facilitated by use of a self-retaining Omni-Tract. Examination of the abdomen demonstrated a large mass at the rectosigmoid. The liver stomach and spleen were grossly normal. Small bowel was examined, a short segment of small bowel was densely adherent to the mass in the pelvis. The appendix, cecum , ascending and transverse colon were grossly normal. The mass at the rectosigmoid was densely adherent to the left lateral pelvic wall, the bladder, and a segment of small bowel. The appendix was isolated, transected with a TX 60 mm stapler at its junction with the cecum and removed. The mesoappendix was divided with the aid of the [employer] Impact dissector. Dissection of the mass was initiated anteriorly. The bladder was dissected free of this mass with difficulty. The dissection proceeded to the left lateral pelvic wall, the mass was again mobilized with difficulty. As dissection proceeded proximally. It became apparent that the left ureter was transected. Dr Jamey Mata, [facility], was contacted and his assistance was requested. The dissection proceeded proximally to the descending colon where the bowel was divided with an Ethicon 75 mm linear stapler. The mesentery was divided with the aid of a [employer] Impact Dissector. Left colic vessels and the hemorrhoidals were divided between curved hemostats and suture ligated with 2-0 silk. Dissection extended along the right side of the sigmoid with dissection extending into the pelvis. A segment of ileum was densely adherent to the mass. During the dissection to free the small bowel from the mass, the small bowel was entered. Distal to the readily apparent mass the bowel was transected with the aid of an Ethicon TX 60 mm stapler. The sigmoid colon was removed from the field. Dr Connolly proceeded to repair the transected left ureter. His dictation is available for inspection under separate cover. On completion of the ureteral repair, I inspected the pelvis the remainder of the bowel. Treatment options at this point include an end colostomy versus stapled colocolonic anastomosis. As I was making a decision, I proceeded to the perineum. I inserted a 25 EEA sound into the rectum and advancing it to the staple line of the Lindsey pouch. The staple line appeared to be approximately 12-15 cm from the anal verge. The repaired ureter was along the left lateral pelvic wall. The surgeon was regowned and gloved. It was necessary to mobilize the descending colon to the distal transverse colon (including mobilization of the splenic flexure) achieve sufficient length for a tension-free anastomosis. I decided to proceed with the stapled colocolonic anastomosis. Staple line on the distal descending colon was transected with the aid of an Ethicon pursestring device. Bowel measured to 29 mm. A 29 mm ECS EEA stapler was selected. The anvil was placed within the distal descending colon, the pursestring was secured. The surgeon then proceeded to the perineum, inserting the EEA stapler into the rectum and advancing the stapler to the staple line. The spike was deployed. The anvil was applied to the spike. A stapled colocolonic anastomosis was completed. 2 intact rings were removed from the stapler. Preoperative rigid sigmoidoscopy was then completed. The staple line appeared visually intact and on insufflation of air, no air was evident leaking through the anastomotic staple line. The surgical coordinator had filled the pelvis with saline. As the colon was insufflated with air there was no string of bubbles to suggest a leak. Since inflated air was evacuated, the rigid sigmoidoscope extracted. The surgeon was again regowned and gloved. The segment of small bowel that had been injured during the mobilization from the sigmoid mass was now resected. The small bowel was transected proximal and distal to the injury using the Ethicon 75 mm linear stapler. The segments were placed [id number]-doho and approximated with interrupted 3-0 silk. A stapled, [id number], functional end to end stapled enteroenterostomy was created with another application of the Ethicon 75 mm stapler. Remaining defect in the bowel was approximated with interrupted 3-0 silk reinforced by application of an Ethicon TX 60 mm stapler. The mesenteric defect was closed with interrupted 3-0 silk. All bowel was again examined from ligament of Treitz to the ileocecal valve. No other abnormalities were detected. The stapled enteroenterostomy appeared intact. The pelvis and abdomen demonstrated adequate hemostasis. The peritoneum was approximated with running 0 Vicryl. The fascia was approximated with interrupted [id number] 0 Vicryl. The subcutaneous tissue was closed with running 3-0 Vicryl. The skin edges were approximated with susi. A dry sterile dressing was applied. The patient was taken to recovery in stable condition. Needle, sponge, and instrument counts were correct at the close of case. The resected sigmoid colon was examined on the back table. The sigmoid was quite serpiginous but no obvious mucosal abnormalities were detected. A hard mass in the center of the loops of sigmoid was evident, the etiology whether inflammatory or neoplastic could not be determined by external examination. Specimens submitted to Pathology: Appendix, sigmoid colon, anastomotic rings with the proximal anastomotic ring marked with a suture, resected fragments of left ureter, and segment of small bowel. During my resection of the mesentery - an individual enlarged lymph node was encountered. This was removed and sent as a separate specimen. Several enlarged lymph nodes were evident within the mesentery contiguous with the sigmoid colon.
[2017-02-25] MEDS ORDERED: Acetaminophen IV 1,000 MG/100 ML INFUS..BTL ONE (15:32)
[2017-02-25] MEDS ORDERED: Acetaminophen IV 1,000 MG/100 ML INFUS..BTL IVPB ONE (15:32)
[2017-02-25] MEDS ORDERED: 0.9 % Sodium Chloride 500 ML IVC ONE (15:32)
[2017-02-25] MEDS ORDERED: 0.9 % Sodium Chloride 500 ML ONE (15:33)
--- NOTE | 2017-02-25 16:01 | Anesthesia Evaluation Post Op ---
Date of Encounter: 02/25/17 Time of Encounter: 15:55 - Vital Signs Vital Signs: 3 Vital Signs Time 1555 BP 114/79 Pulse 105 Resp 16 O2 Sat 96 - Lungs Lungs: Clear Ascult./Percussion - Airway Airway: Non-obstructed - Cardiovascular Regular Rate - Mental Status Mental Status: Alert & Oriented, Answers Appropriately, Baseline Status - Pain Pain Scale: 5 Pain Scale used: Numeric (1 - 10) - Nausea Vomiting Nausea Vomiting: Not Present - Hydration Hydration: NPO, Camacho catheter - Discharge PostOp Status: Transfer Patient to floor
[2017-02-25] MEDS ORDERED: Naloxone 0.4 MG/ML INJ IVP PRN (16:23)
[2017-02-25] MEDS ORDERED: 0.9 % Sodium Chloride 1,000 ML ONE (16:42)
--- NOTE | 2017-02-25 16:50 | Internal Med Progress Note ---
Date of Encounter: 02/25/17 Time of Encounter: 16:30 - Assessment and plan (1) Colonic mass Current Visit: Yes Status: Acute Assessment and plan: Abdominal pain - secondary to rectosigmoid mass S/p Exploratory celiotomy, lysis of adhesions, sigmoid colectomy with anastomosis, incidental appendectomy and repair of transected left ureter CT abdomen and pelvis - mass in the rectosigmoid highly suspicious for neoplasm , abnormal mural thickening of the urinary bladder with possibility of invasion of bladder Gastroenterology consult - Dr. Le has done colonoscopy - which revealed an inflammatory mass Continue IV fluids, IV Dilaudid STATE'S [employer] pump, IV Protonix IV Flagyl, Zosyn, NPO Pathology report reveals hyperplastic polyp (2) Constipation due to outlet obstruction Current Visit: Yes Status: Acute Assessment and plan: Secondary to rectosigmoid mass (3) Dysuria Current Visit: Yes Status: Acute Assessment and plan: Symptoms have now resolved - Concern for sigmoid mass invading the urinary bladder Camacho catheter in place (4) Hypertension Current Visit: Yes Status: Chronic Assessment and plan: Essential hypertension, controlled, monitor, IV Hydralalzine PRN Qualifiers: Hypertension type: essential hypertension Qualified Code(s): I10 - Essential (primary) hypertension (5) DVT prophylaxis Current Visit: Yes Status: Acute Assessment and plan: Continue SCDs, ambulate early - Subjective Interval history: Examined this afternoon after his surgery. Patient is still sedated. Not in any distress. No fever. Hemodynamically stable. is at bedside. No other acute events. Patient underwent exploratory celiotomy, lysis of adhesions, sigmoid colectomy with coloanal colonic stenosis. Small bowel resection with stapled enteroenterostomy, incidental appendectomy and repair of transected left ureter. - Constitutional Vitals: Temp Pulse Resp BP Pulse Ox 97.1 F L 99 16 109/79 95 02/25/17 16:03 02/25/17 16:03 02/25/17 16:03 02/25/17 16:03 02/25/17 16:03 General appearance: Present: no acute distress Exam: Examined after surgery, patient is sedated - Head Head exam: Present: atraumatic - ENT ENT exam: Present: mucous membranes dry - Neck Neck exam general surgery: Present: supple - Respiratory Respiratory exam: Present: CTAB. Absent: rales, rhonchi, stridor, wheezes, tachypnea - Cardiovascular Cardiovascular exam: Present: RRR, +S1, +S2 - GI/Abdominal GI/Abdominal exam: Present: soft. Absent: firm, guarding Additional comments: Surgical dressing in place with no bleeding or drainage, left side CHELA drain in place - Extremities Exam Extremities exam: Present: radial pulses palpable and symetrical. Absent: cyanotic, pedal edema - Neurological Exam Additional comments: Patient is still sedated postoperatively, not in any distress Internal Medicine: Result - Labs CBC & Chem 7: 02/22/17 03:50 02/21/17 03:15 - ABG Interpretation ABG results: PT/INR, D-dimer PT 11.9 Seconds (9.4-12.1) 02/22/17 03:50 Consult Discharge Plan - Plan Referrals: Deandre Isbell DO [Primary Care Provider] -
[2017-02-25] MEDS: 0.9 % Sodium Chloride 1,000 ML IVC SCH (18:20)
[2017-02-25] MEDS: *HR* HYDROmorphone 20 MG/20 ML PCA IVC PRN (18:48)
[2017-02-26] MEDS: 0.9 % Sodium Chloride 1,000 ML IVC SCH ×2 (01:00→09:01)
[2017-02-26] MEDS: MetroNIDAZOLE 500 MG/100 ML 500 MG/100 ML BAG IVPB SCH ×4 (01:01→18:54)
[2017-02-26] MEDS: Piperacillin/Tazobactam 3.375 GM in D5% in Water (Mini-Bag+) 100 ML IVPB SCH ×3 (02:54→18:54)
--- NOTE | 2017-02-26 07:17 | Urology Progress Note ---
Date of Encounter: 02/26/17 Time of Encounter: 07:15 - Assessment and Plan (1) Transection of ureter of left tetlin kidney Current Visit: Yes Status: Acute Assessment and plan: s/p left uretero-ureterostomy. POD #1. 1. Continue bingham catheter. If urine output is good, will d/c bingham tomorrow and monitor CHELA output. 2. Check CHELA creatinine today for baseline. 3. Will follow along. Qualifiers: Encounter type: initial encounter Qualified Code(s): S37.10XA - Unspecified injury of ureter, initial encounter Progress Note Narrative: 46 year old man status post left hemicolectomy with left ureteral transection. I did a left uretero-ureterostomy yesterday. He is doing fairly well today. Pain is controlled with BARREL LATHE OPERATOR INSIDE. CHELA was 20ml overnight. UOP okay. Objective Initial Vital Signs Temp Pulse Resp BP Pulse Ox 97.6 F 90 18 148/92 94 02/19/17 08:57 02/19/17 08:57 02/19/17 08:57 02/19/17 08:57 02/19/17 08:57 - General physical appearance Present: well developed, well nourished, no distress - Respiratory Present: normal respiratory effort - Abdomen Present: tender (CHELA with serosanguinous drainage.) - Genitourinary Urine Appearance: Present: Clear - Labs 02/22/17 03:50 02/21/17 03:15 - VTE Documentation of Mechanical Device: Intermittent pneumatic compression device Consult Discharge Plan - Plan Referrals: Deandre Isbell DO [Primary Care Provider] -
[2017-02-26] MEDS: Pantoprazole 40 MG VIAL IVP SCH (08:15)
--- NOTE | 2017-02-26 13:36 | General Surgery Progress Note ---
Date of Encounter: 02/26/17 Time of Encounter: 13:00 Subjective Narrative: General Surgery - POD #1 Patient complaining of incisional pain as expected; using Little POND SCALER Dilaudid due to fear of "addiction" With the pain the patient limited in his ability to move and get out of bed as well as take a deep breath and cough effectively This has been extensively discussed with the patient. The patient has remained afebrile, currently 97.5; tachycardic with pulse ranging from 108-113; respiratory rate 18-20, blood pressure 127/84. SPO2 91% on room air Lungs: Clear to auscultation, though limited/poor inspiratory effort. Cardiac: Pulse rapid as noted above; likely due to pain Abdomen: Soft, quiet; midline incision clean and dry- dressing removed Pelvic drain site clean and dry. Output 40 mL so far today, serosanguineous fluid Laboratories: Strong this morning as patient refused due to the difficulty in obtaining a satisfactory venipuncture The importance of the lab work is been stressed. Will try to obtain again. Impression: Postoperative day 1 - satisfactory postoperative status, however, patient requires considerable encouragement to deep breathe, cough and be active out of bed as well as allow the necessary blood draws to properly care for this patient. Pathology pending Objective Vital Signs - Last 8 Hours Temp Pulse Resp BP Pulse Ox 02/26/17 11:01 97.5 F L 113 18 127/84 91 02/26/17 06:50 97.6 F 108 20 127/78 93 Intake and Output 02/25/17 02/26/17 02/26/17 23:59 07:59 15:59 Intake Total 440 / 440 1300 / 1300 1000 / 1000 Output Total 500 / 500 570 / 570 940 / 940 Balance -60 / -60 730 / 730 60 / 60 Intake: IV Fluids 200 / 200 1300 / 1300 1000 / 1000 0.9 % Sodium Chloride 1, 1000 / 1000 1000 / 1000 000 ML @ 125 mls/hr IVC . Q8H [facility] Rx#:[id number] Flagyl Premix 500 MG/100 100 / 100 200 / 200 ML 500 mg In 100 ml @ 100 mls/hr IVPB Q6H [facility] Rx#: [id number] Zosyn 3.375 GM In 100 / 100 100 / 100 Dextrose 5% (Minibag+) 100 ML 100 ML @ 25 mls/hr IVPB Q8H [facility] [place] Rx#: [id number] Oral 240 / 240 0 / 0 Output: Catheter 350 / 350 550 / 550 900 / 900 Wound Drainage 150 / 150 20 / 20 40 / 40 Medial Abdomen 150 / 150 20 / 20 40 / 40 Other: Meal Dinner Percent of Meal Consumed 100% Weight 120.2 kg Blood Glucose* 130 115 125 Patient Weight 02/26/17 23:59 Weight 120.2 kg - Labs 02/22/17 03:50 02/21/17 03:15 - VTE Documentation of Mechanical Device: Intermittent pneumatic compression device Consult Discharge Plan - Plan Referrals: Deandre Isbell DO [Primary Care Provider] -
--- NOTE | 2017-02-26 13:57 | Internal Med Progress Note ---
Date of Encounter: 02/26/17 Time of Encounter: 11:45 - Assessment and plan (1) Colonic mass Current Visit: Yes Status: Acute Assessment and plan: Abdominal pain - secondary to rectosigmoid mass - postop day #1 S/p Exploratory celiotomy, lysis of adhesions, sigmoid colectomy with anastomosis, incidental appendectomy and repair of transected left ureter (left uretero-ureterostomy) CT abdomen and pelvis - mass in the rectosigmoid highly suspicious for neoplasm , abnormal mural thickening of the urinary bladder with possibility of invasion of bladder Gastroenterology consult - Dr. Le has done colonoscopy - which revealed an inflammatory mass Continue IV fluids, IV Dilaudid PRE ASSEMBLY WIRER pump, IV Protonix IV Flagyl, Zosyn, NPO Dr Garcia following patient Pathology report reveals hyperplastic polyp (2) Constipation due to outlet obstruction Current Visit: Yes Status: Acute Assessment and plan: Secondary to rectosigmoid mass (3) Dysuria Current Visit: Yes Status: Acute Assessment and plan: Symptoms have now resolved - Concern for sigmoid mass invading the urinary bladder Camacho catheter in place Urology following patient (4) Hypertension Current Visit: Yes Status: Chronic Assessment and plan: Essential hypertension, controlled, monitor, IV Hydralalzine PRN Qualifiers: Hypertension type: essential hypertension Qualified Code(s): I10 - Essential (primary) hypertension (5) DVT prophylaxis Current Visit: Yes Status: Acute Assessment and plan: Continue SCDs, ambulate early - Time Spent With Patient 25 - 35 minutes - Subjective Interval history: Examined this morning. Patient awake and alert. Not in any distress. No fever. Hemodynamically stable. Denies chest pain or shortness of breath. Complains of pain at the surgical site. Pain seems to be well controlled with PRE ASSEMBLY WIRER pump. Good urine output. No other acute events or complaints. Postop day #1. Patient underwent exploratory celiotomy, lysis of adhesions, sigmoid colectomy with coloanal colonic anastomosis. Small bowel resection with stapled enteroenterostomy, incidental appendectomy and repair of transected left ureter (left uretero-ureterostomy). Doing well postoperatively. - Constitutional Vitals: Temp Pulse Resp BP Pulse Ox 97.5 F L 113 18 127/84 91 02/26/17 11:01 02/26/17 11:01 02/26/17 11:01 02/26/17 11:01 02/26/17 11:01 General appearance: Present: A&O X 3, no acute distress, obese, answers questions appropriately - Head Head exam: Present: atraumatic - Eye Eye exam: Present: EOMI - ENT ENT exam: Present: mucous membranes dry - Neck Neck exam general surgery: Present: supple - Respiratory Respiratory exam: Present: CTAB. Absent: rales, rhonchi, stridor, tachypnea - Cardiovascular Cardiovascular exam: Present: RRR, +S1, +S2 - GI/Abdominal GI/Abdominal exam: Present: diminished bowel sounds, soft, tenderness (Mild). Absent: firm, guarding Additional comments: CHELA drain in place with serosanguineous fluid, midline incision healing well, dressing removed - Extremities Exam Extremities exam: Present: radial pulses palpable and symetrical. Absent: calf tenderness, cyanotic, pedal edema - Neurological Exam Neurological exam: Present: alert, oriented X3, no focal deficits Internal Medicine: Result - Labs CBC & Chem 7: 02/22/17 03:50 02/21/17 03:15 - ABG Interpretation ABG results: PT/INR, D-dimer PT 11.9 Seconds (9.4-12.1) 02/22/17 03:50 - VTE Documentation of Mechanical Device: Intermittent pneumatic compression device Consult Discharge Plan - Plan Referrals: Deandre Isbell DO [Primary Care Provider] -
[2017-02-26] MEDS ORDERED: *HR* LORazepam 2 MG/ML VIAL IVP STA (18:00)
--- NOTE | 2017-02-26 18:51 | Event Note ---
Date of Encounter: 02/26/17 Time of Encounter: 18:00 Lab unable to obtain peripheral blood for labs since this AM. [employer] [place] functioning as Iv access but not able to draw for labs. Discussed with patient. Consent for CVL obtained. Risks include hemorrhage, infection, pneumothorax, malposition of the catheter. After obtaining consent - the patient was placed in Trendelenburg, the right neck and chest was prepped and with chlorhexidine and a large, whole-body drape applied. Proper hand hygiene was exercised. The surgeon was gowned, gloved, and masked. 5 mL of 1% lidocaine was infiltrated locally. Using an 18-gauge needle the right subclavian vein was located. At no time was air aspirated. In the technique described by Silviano, guidewire was inserted, the needle was extracted. The skin tract was incised and dilated. A 16 cm 7 Fr, 3 lumen Arrow- [place] catheter was placed over the guide wire to 15 cm. the guidewire was extracted. Catheter was secured to the infraclavicular skin with 3-0 silk. The 3 ports aspirated easily for blood. They were flushed with saline. A dry sterile OpSite dressing was applied. The patient tolerated the procedure well. He had bilateral equal breath sounds at the completion of the procedure. Portable chest x-ray is pending and will be reviewed on completion to verify proper placement of the central line.
[2017-02-26 19:34] LABS: Basophils % 0.2 %; Eosinophils % 0.1 %; Hematocrit 37.8 % (37.5-50.1); Immature Granulocytes % 0.6 % (0-4); Lymphocytes % 6.4 %; Mean Corpuscular HGB Conc 32.3 g/dL (31.6-35.5); Mean Corpuscular Hemoglobin 28.7 pg (28.0-33.3); Mean Corpuscular Volume 88.9 fL (83.0-100.0); Monocytes # 1.9 K/mcL (0.0-1.3); Monocytes % 12.7 %; Neutrophils # 12.2 K/mcL (1.6-8.9); Platelet Count 237 K/mcL (140-400); Red Blood Count 4.25 M/mcL (4.19-5.50)
[2017-02-26 19:35] LABS: Hemoglobin 12.2 g/dL (12.9-16.9)
[2017-02-26 19:53] LABS: BUN/Creatinine Ratio 6 (6-26); Blood Urea Nitrogen 7 mg/dL (8-26); Calcium 8.3 mg/dL (8.6-10.8); Carbon Dioxide 27 mEq/L (19-29); Chloride 105 mEq/L (98-109); Glucose 110 mg/dL (70-99); Osmolality,Calculated 285 (280-300); Sodium 138 mEq/L (136-145); eGFR For African Americans > 60 (> 60); eGFR For Non-African Americans > 60 (> 60)
[2017-02-27] MEDS: 0.9 % Sodium Chloride 1,000 ML IVC SCH ×3 (01:05→09:12)
[2017-02-27] MEDS: MetroNIDAZOLE 500 MG/100 ML 500 MG/100 ML BAG IVPB SCH ×5 (01:06→23:29)
[2017-02-27] MEDS: Piperacillin/Tazobactam 3.375 GM in D5% in Water (Mini-Bag+) 100 ML IVPB SCH ×3 (01:07→18:17)
[2017-02-27 04:06] LABS: Basophils % 0.3 %; Eosinophils % 0.2 %; Hematocrit 34.2 % (37.5-50.1); Hemoglobin 11.4 g/dL (12.9-16.9); Immature Granulocytes % 0.8 % (0-4); Lymphocytes % 7.1 %; Mean Corpuscular HGB Conc 33.3 g/dL (31.6-35.5); Mean Corpuscular Hemoglobin 29.8 pg (28.0-33.3); Mean Corpuscular Volume 89.3 fL (83.0-100.0); Mean Platelet Volume 10.2 fL (9.4-12.4); Monocytes # 1.9 K/mcL (0.0-1.3); Neutrophils # 11.3 K/mcL (1.6-8.9); Platelet Count 229 K/mcL (140-400); Red Blood Count 3.83 M/mcL (4.19-5.50); Segmented Neutrophils % 78.6 %
[2017-02-27 04:10] LABS: BUN/Creatinine Ratio 7 (6-26); Blood Urea Nitrogen 8 mg/dL (8-26); Calcium 8.1 mg/dL (8.6-10.8); Carbon Dioxide 27 mEq/L (19-29); Chloride 104 mEq/L (98-109); Glucose 109 mg/dL (70-99); Osmolality,Calculated 281 (280-300); Potassium 3.9 mEq/L (3.5-4.5); Sodium 136 mEq/L (136-145); eGFR For African Americans > 60 (> 60); eGFR For Non-African Americans > 60 (> 60)
--- NOTE | 2017-02-27 07:21 | Urology Progress Note ---
Date of Encounter: 02/27/17 Time of Encounter: 07:18 - Assessment and Plan (1) Transection of ureter of left [place] kidney Current Visit: Yes Status: Acute Assessment and plan: Postoperative #2 status post left ureteroureterostomy. 1. Camacho can be removed today per my standpoint. I will defer to Gen. surgery depending upon when Dr. Garcia feels comfortable removing it. It is okay to continue the catheter if there is further need for strict I and O measurement. 2. After the catheter is removed I would continue the CHELA drain for one more day and monitor the output. I typically obtain a repeat CHELA creatinine on the day of CHELA removal. At this point there does not appear to be any evidence of urine leak. 3. Indwelling stent is in place. This will remain for 6 weeks. Qualifiers: Encounter type: initial encounter Qualified Code(s): S37.10XA - Unspecified injury of ureter, initial encounter Progress Note Narrative: Postop day #2 status post left ureteroureterostomy. Pain is adequately controlled on KEG WASHER. CHELA creatinine yesterday was consistent with serum. Laboratory values were reviewed today. Camacho is draining clear urine. CHELA is serosanguineous. Objective Initial Vital Signs Temp Pulse Resp BP Pulse Ox 97.6 F 90 18 148/92 94 02/19/17 08:57 02/19/17 08:57 02/19/17 08:57 02/19/17 08:57 02/19/17 08:57 - General physical appearance Present: well developed, well nourished, no distress - Respiratory Present: normal respiratory effort - Abdomen Present: tender (CHELA sero sanguinous) - Genitourinary Urine Appearance: Present: Clear - Labs 02/27/17 03:50 02/27/17 03:50 Diabetes panel 02/26/17 02/27/17 Range/Units 19:29 03:50 Sodium 138 136 (136-145) mEq/L Potassium 4.0 3.9 (3.5-4.5) mEq/L Chloride 105 104 (98-109) mEq/L Carbon Dioxide 27 27 (19-29) mEq/L BUN 7 L 8 (8-26) mg/dL Creatinine 1.14 1.15 (0.72-1.25) mg/dL Glucose 110 H 109 H (70-99) mg/dL Calcium 8.3 L 8.1 L (8.6-10.8) mg/dL Calcium panel 02/26/17 02/27/17 Range/Units 19:29 03:50 Calcium 8.3 L 8.1 L (8.6-10.8) mg/dL Pituitary panel 02/26/17 02/27/17 Range/Units 19:29 03:50 Sodium 138 136 (136-145) mEq/L Potassium 4.0 3.9 (3.5-4.5) mEq/L Chloride 105 104 (98-109) mEq/L Carbon Dioxide 27 27 (19-29) mEq/L BUN 7 L 8 (8-26) mg/dL Creatinine 1.14 1.15 (0.72-1.25) mg/dL Glucose 110 H 109 H (70-99) mg/dL Calcium 8.3 L 8.1 L (8.6-10.8) mg/dL Adrenal panel 02/26/17 02/27/17 Range/Units 19:29 03:50 Sodium 138 136 (136-145) mEq/L Potassium 4.0 3.9 (3.5-4.5) mEq/L Chloride 105 104 (98-109) mEq/L Carbon Dioxide 27 27 (19-29) mEq/L BUN 7 L 8 (8-26) mg/dL Creatinine 1.14 1.15 (0.72-1.25) mg/dL Glucose 110 H 109 H (70-99) mg/dL Calcium 8.3 L 8.1 L (8.6-10.8) mg/dL - VTE Documentation of Mechanical Device: Intermittent pneumatic compression device Consult Discharge Plan - Plan Referrals: Sanjay Garcia MD [Non-Partnered Physician] - Deandre Isbell DO [Primary Care Provider] -
[2017-02-27] MEDS: Pantoprazole 40 MG VIAL IVP SCH (09:05)
[2017-02-27] MEDS: Ondansetron 4 MG/2 ML VIAL IVP PRN (09:06)
--- NOTE | 2017-02-27 13:34 | Internal Med Progress Note ---
Date of Encounter: 02/27/17 Time of Encounter: 08:15 - Assessment and plan (1) Colonic mass Current Visit: Yes Status: Acute Assessment and plan: Status post Exploratory celiotomy, lysis of adhesions, sigmoid colectomy with anastomosis, incidental appendectomy and repair of transected left ureter (left uretero-ureterostomy) postop day 2. Continue supportive care. IV hydration. Surgery following. Patient has not had a bowel movement or flatus yet. Pain control with intravenous Dilaudid DIGITAL PROJECT COORDINATOR pump. High risk for complications. Continue IV antibiotics. (2) Hypertension Current Visit: Yes Status: Chronic Assessment and plan: Remains uncontrolled. We will place patient on scheduled Lopressor intravenously. Qualifiers: Hypertension type: essential hypertension Qualified Code(s): I10 - Essential (primary) hypertension (3) Constipation due to outlet obstruction Current Visit: Yes Status: Acute Assessment and plan: Treated with surgery for rectosigmoid mass (4) Transection of ureter of left [place] kidney Current Visit: Yes Status: Acute Assessment and plan: Intraoperative. Has been fixed intraoperatively with left ureteroureterostomy. Urology following. Patient having good urine output. Qualifiers: Encounter type: initial encounter Qualified Code(s): S37.10XA - Unspecified injury of ureter, initial encounter (5) DVT prophylaxis Current Visit: Yes Status: Acute Assessment and plan: With SCDs - Subjective Interval history: Patient complains of nausea. His pain is better controlled as he is using DIGITAL PROJECT COORDINATOR more often. Has not had any flatus or bowel movement yet. Feels thirsty and hungry. Has abdominal pain related to surgery. No other new complaints at this time. - Constitutional Vitals: Temp Pulse Resp BP Pulse Ox 98.3 F 119 20 149/107 95 02/27/17 13:19 02/27/17 13:19 02/27/17 13:19 02/27/17 13:19 02/27/17 13:19 General appearance: Present: mild distress, A&O X 3, obese, answers questions appropriately - Neck Neck exam general surgery: Present: supple, trachea midline. Absent: lymphadenopathy - Respiratory Respiratory exam: Present: CTAB. Absent: accessory muscle use, rales, rhonchi, wheezes - Cardiovascular Cardiovascular exam: Present: RRR, +S1, +S2. Absent: diastolic murmur, gallop, rubs, systolic murmur - GI/Abdominal GI/Abdominal exam: Present: diminished bowel sounds, distended, soft, tenderness (Generalized), no peritoneal signs Additional comments: Abdominal incision healing well. Drain in place draining blood-tinged fluid. About 100 mL since yesterday. - Extremities Exam Extremities exam: Present: warm, radial pulses palpable and symetrical. Absent : calf tenderness, cyanotic, pedal edema - Neurological Exam Neurological exam: Present: alert, oriented X3, no focal deficits. Absent: facial droop, speech deficit Internal Medicine: Result - Labs CBC & Chem 7: 02/27/17 03:50 02/27/17 03:50 Labs: Short CBC 02/26/17 02/27/17 Range/Units 19:29 03:50 WBC 15.3 H D 14.4 H (4.3-11.1) K/mcL Hgb 12.2 L 11.4 L (12.9-16.9) g/dL Hct 37.8 34.2 L (37.5-50.1) % Plt Count 237 229 (140-400) K/mcL Neutrophils # 12.2 H 11.3 H (1.6-8.9) K/mcL BMP 02/26/17 02/27/17 19:29 03:50 Sodium 138 136 Potassium 4.0 3.9 Chloride 105 104 Carbon Dioxide 27 27 BUN 7 L 8 Creatinine 1.14 1.15 Glucose 110 H 109 H Calcium 8.3 L 8.1 L - ABG Interpretation ABG results: PT/INR, D-dimer PT 11.9 Seconds (9.4-12.1) 02/22/17 03:50 - Impressions Impressions Chest X-Ray 02/26/17 18:41 IMPRESSION: 1. Right CVC with tip in the superior vena cava. No pneumothorax. 2. Mild bibasilar atelectasis. D/ / 02/26/2017 19:06:45 Ben Membreno MD / Brionna Matamoros Interpreting Provider: Ben Membreno MD - VTE Documentation of Mechanical Device: Intermittent pneumatic compression device Consult Discharge Plan - Plan Referrals: Sanjay Garcia MD [Non-Partnered Physician] - Deandre Isbell DO [Primary Care Provider] -
--- NOTE | 2017-02-27 15:55 | General Surgery Progress Note ---
Date of Encounter: 02/27/17 Time of Encounter: 14:30 Subjective Patient reports: still having pain Narrative: General Surgery - POD #2 Patient seated bedside; Still complaining of pain but no nausea or vomiting. Afebrile, 98.3; patient remains tachycardic, range 111-119; respiratory rate 20, blood pressure 149/107. SPO2 and remained 95% Lungs: Diminished breath sounds on the left; otherwise clear. Cardiac: Tachycardia, no appreciable murmurs Abdomen: Soft, quiet. Midline incision clean and dry. CHELA drain up proximally 60 mL serosanguineous [place]: 1925 mL so far today Laboratories: White count 14.4, hemoglobin 11.4, hematocrit 34.2; neutrophils have diminished to 11.3%; monocytes stable at 1.9% Electrolytes, BUN, creatinine stable; eGFR >60 Pathology: Chronic diverticulitis with ulcerated inflammatory polyps and pericolic abscess; the separate lymph nodes sent from the mesentery demonstrated follicular hyperplasia; small bowel demonstrated densely adherent colonic tissue with diverticulitis; appendix without pathologic diagnosis; the resected ends of the ureter demonstrated the expected smooth muscle. No atypia or malignancy identified Impression:: POD #2 s/p sigmoid resection for chronic diverticulitis with pericolic abscess. Dense adhesions/involvement of surrounding structures including bladder, small bowel, and ureter. Resultant injury to the left ureter requiring uretero- ureterostomy. Postoperative tachycardia likely pain driven; patient encouraged to use the ONLINE SERVICES MANAGER Dilaudid for pain control. This will also facilitate the patient's ability to increase his activity at bed; and improve his pulmonary toilet mild postoperative anemia - partially due to intraoperative losses but also partially due to dilution. In face of significant urinary output, reduce IV fluids Maintain [place] due to expected urinary bladder dysfunction due to extensive pelvic dissection required during the recent operation. Hypertension - BP currently elevated due to pain and discontinuation of oral meds. Silent abdomen - bowel function yet to return following surgery Objective Vital Signs - Last 8 Hours Temp Pulse Resp BP Pulse Ox 02/27/17 13:19 98.3 F 119 20 149/107 95 02/27/17 11:07 98.2 F 114 20 147/83 92 02/27/17 09:26 98.1 F 111 15 130/77 93 02/27/17 07:17 98.6 F 117 20 127/70 92 Intake and Output 02/26/17 02/27/1702/27/17 23:59 07:59 15:59 Intake Total 1300 / 1300 200 / 200 1000 / 1000 Output Total 500 / 500 1000 / 1000 985 / 985 Balance 800 / 800 -800 / -800 Intake: IV Fluids 1300 / 1300 200 / 200 1000 / 1000 0.9 % Sodium Chloride 1, 1000 / 1000 1000 / 1000 000 ML @ 125 mls/hr IVC . Q8H [facility] Rx#:[id number] Flagyl Premix 500 MG/100 100 / 100 100 / 100 ML 500 mg In 100 ml @ 100 mls/hr IVPB Q6H [facility] Rx#: [id number] Zosyn 3.375 GM In 200 / 200 100 / 100 Dextrose 5% (Minibag+) 100 ML 100 ML @ 25 mls/hr IVPB Q8H [facility] Rx#: [id number] Oral 0 / 0 0 / 0 Output: Straight Cath 500 / 500 Catheter 1000 / 1000 925 / 925 Wound Drainage 0 / 0 60 / 60 Medial Abdomen 0 / 0 60 / 60 Other: Meal NPO NPO Percent of Meal Consumed 0% Weight 122.8 kg Blood Glucose* 125 118 107 Patient Weight 02/27/17 23:59 Weight 122.8 kg - Labs 02/27/17 03:50 02/27/17 03:50 Diabetes panel 02/26/17 02/27/17 Range/Units 19:29 03:50 Sodium 138 136 (136-145) mEq/L Potassium 4.0 3.9 (3.5-4.5) mEq/L Chloride 105 104 (98-109) mEq/L Carbon Dioxide 27 27 (19-29) mEq/L BUN 7 L 8 (8-26) mg/dL Creatinine 1.14 1.15 (0.72-1.25) mg/dL Glucose 110 H 109 H (70-99) mg/dL Calcium 8.3 L 8.1 L (8.6-10.8) mg/dL Calcium panel 02/26/17 02/27/17 Range/Units 19:29 03:50 Calcium 8.3 L 8.1 L (8.6-10.8) mg/dL Pituitary panel 02/26/17 02/27/17 Range/Units 19:29 03:50 Sodium 138 136 (136-145) mEq/L Potassium 4.0 3.9 (3.5-4.5) mEq/L Chloride 105 104 (98-109) mEq/L Carbon Dioxide 27 27 (19-29) mEq/L BUN 7 L 8 (8-26) mg/dL Creatinine 1.14 1.15 (0.72-1.25) mg/dL Glucose 110 H 109 H (70-99) mg/dL Calcium 8.3 L 8.1 L (8.6-10.8) mg/dL Adrenal panel 02/26/17 02/27/17 Range/Units 19:29 03:50 Sodium 138 136 (136-145) mEq/L Potassium 4.0 3.9 (3.5-4.5) mEq/L Chloride 105 104 (98-109) mEq/L Carbon Dioxide 27 27 (19-29) mEq/L BUN 7 L 8 (8-26) mg/dL Creatinine 1.14 1.15 (0.72-1.25) mg/dL Glucose 110 H 109 H (70-99) mg/dL Calcium 8.3 L 8.1 L (8.6-10.8) mg/dL - VTE Documentation of Mechanical Device: Intermittent pneumatic compression device Consult Discharge Plan - Plan Referrals: Sanjay Garcia MD [Non-Partnered Physician] - Deandre Isbell DO [Primary Care Provider] -
[2017-02-27] MEDS: D5% in 0.45% NACL 1,000 ML IVC SCH (16:03)
[2017-02-27] MEDS: *HR* Heparin 5,000 UNIT/ML VIAL SQ SCH ×2 (16:08→22:40)
[2017-02-27] MEDS: *HR* Metoprolol 5 MG/5 ML VIAL IVP SCH ×2 (18:20→23:29)
[2017-02-27] MEDS: Albuterol 2.5 MG/3 ML NEBULIZER IH SCH ×2 (20:19→20:59)
[2017-02-28] MEDS: *HR* HYDROmorphone 20 MG/20 ML PCA IVC PRN (04:06)
[2017-02-28] MEDS: Albuterol 2.5 MG/3 ML NEBULIZER IH SCH ×4 (04:06→21:21)
[2017-02-28] MEDS: *HR* Metoprolol 5 MG/5 ML VIAL IVP SCH ×3 (04:24→17:39)
[2017-02-28] MEDS: Piperacillin/Tazobactam 3.375 GM in D5% in Water (Mini-Bag+) 100 ML IVPB SCH ×3 (04:25→17:38)
[2017-02-28 05:05] LABS: BUN/Creatinine Ratio 8 (6-26); Blood Urea Nitrogen 9 mg/dL (8-26); Calcium 8.3 mg/dL (8.6-10.8); Carbon Dioxide 29 mEq/L (19-29); Chloride 104 mEq/L (98-109); Glucose 125 mg/dL (70-99); Osmolality,Calculated 286 (280-300); Potassium 3.8 mEq/L (3.5-4.5); Sodium 138 mEq/L (136-145); eGFR For African Americans > 60 (> 60); eGFR For Non-African Americans > 60 (> 60)
[2017-02-28] MEDS: D5% in 0.45% NACL 1,000 ML IVC SCH ×2 (05:55→20:00)
[2017-02-28 06:07] LABS: Basophils % 0.2 %; Eosinophils # 0.2 K/mcL (0.0-0.6); Eosinophils % 1.6 %; Hematocrit 34.2 % (37.5-50.1); Hemoglobin 10.9 g/dL (12.9-16.9); Immature Granulocytes % 0.7 % (0-4); Lymphocytes # 1.1 K/mcL (0.6-4.6); Lymphocytes % 8.5 %; Mean Corpuscular HGB Conc 31.9 g/dL (31.6-35.5); Mean Platelet Volume 11.1 fL (9.4-12.4); Monocytes # 1.7 K/mcL (0.0-1.3); Monocytes % 12.4 %; Neutrophils # 10.2 K/mcL (1.6-8.9); Platelet Count 237 K/mcL (140-400); Red Blood Count 3.76 M/mcL (4.19-5.50); Red Cell Distribution Width 14.1 % (11.5-14.5); Segmented Neutrophils % 76.6 %
[2017-02-28] MEDS: *HR* Heparin 5,000 UNIT/ML VIAL SQ SCH ×3 (06:07→21:45)
[2017-02-28] MEDS: Pantoprazole 40 MG VIAL IVP SCH (07:44)
[2017-02-28] MEDS: MetroNIDAZOLE 500 MG/100 ML 500 MG/100 ML BAG IVPB SCH ×3 (07:44→20:00)
--- NOTE | 2017-02-28 13:47 | Internal Med Progress Note ---
Date of Encounter: 02/28/17 Time of Encounter: 08:15 - Assessment and plan (1) Colonic mass Current Visit: Yes Status: Acute Assessment and plan: Status post-exploratory celiotomy with lysis of adhesions, sigmoid colectomy with anastomosis and incidental appendectomy with repair of transected left ureter. Postop day 3. Patient having audible bowel sounds. No bowel movement or flatus yet. Surgery following. Continue pain management with intravenous Dilaudid MANNEQUIN MAKER pump. High risk for complications. Follow surgery recommendations. (2) Hypertension Current Visit: Yes Status: Chronic Assessment and plan: Blood pressure improved. Continue Lopressor intravenously. Qualifiers: Hypertension type: essential hypertension Qualified Code(s): I10 - Essential (primary) hypertension (3) Constipation due to outlet obstruction Current Visit: Yes Status: Resolved (4) Transection of ureter of left [place] kidney Current Visit: Yes Status: Acute Assessment and plan: Patient continues to have good urine output. Camacho catheter in place. Qualifiers: Encounter type: initial encounter Qualified Code(s): S37.10XA - Unspecified injury of ureter, initial encounter (5) DVT prophylaxis Current Visit: Yes Status: Acute Assessment and plan: On DVT prophylaxis with subcutaneous heparin - Subjective Interval history: Patient is doing better today. His pain is better controlled now that he is using the Dilaudid MANNEQUIN MAKER as prescribed. Nausea is also improving. Has not had any bowel movement or flatus yet. Tolerating ice chips. - Constitutional Vitals: Temp Pulse Resp BP Pulse Ox 98.2 F 86 14 135/90 99 02/28/17 10:54 02/28/17 10:54 02/28/17 10:54 02/28/17 10:54 02/28/17 10:54 General appearance: Present: mild distress, A&O X 3, obese, answers questions appropriately - Respiratory Respiratory exam: Present: CTAB. Absent: accessory muscle use, rales, rhonchi, wheezes - Cardiovascular Cardiovascular exam: Present: RRR, +S1, +S2. Absent: diastolic murmur, gallop, rubs, systolic murmur - GI/Abdominal GI/Abdominal exam: Present: normal bowel sounds, soft, no peritoneal signs. Absent: distended, tenderness Additional comments: Abdomen soft, distended and generalized tenderness. Mid abdominal incision healing well. Drain in place. - Extremities Exam Extremities exam: Present: warm, radial pulses palpable and symmetrical. Absent : calf tenderness, cyanotic, pedal edema - Neurological Exam Neurological exam: Present: alert, oriented X3, no focal deficits, strengths equal and symetr throughout. Absent: speech deficit - Skin Skin exam: Present: dry, intact Internal Medicine: Result - Labs CBC & Chem 7: 02/28/17 04:30 02/28/17 04:30 Labs: Short CBC 02/28/17 Range/Units 04:30 WBC 13.4 H (4.3-11.1) K/mcL Hgb 10.9 L (12.9-16.9) g/dL Hct 34.2 L (37.5-50.1) % Plt Count 237 (140-400) K/mcL Neutrophils # 10.2 H (1.6-8.9) K/mcL BMP 02/28/17 04:30 Sodium 138 Potassium 3.8 Chloride 104 Carbon Dioxide 29 BUN 9 Creatinine 1.06 Glucose 125 H Calcium 8.3 L - ABG Interpretation ABG results: PT/INR, D-dimer PT 11.9 Seconds (9.4-12.1) 02/22/17 03:50 - VTE Documentation of Mechanical Device: Intermittent pneumatic compression device Consult Discharge Plan - Plan Referrals: Sanjay Garcia MD [Non-Partnered Physician] - Deandre Isbell DO [Primary Care Provider] -
--- NOTE | 2017-02-28 15:02 | General Surgery Progress Note ---
Date of Encounter: 02/28/17 Time of Encounter: 14:54 Subjective Narrative: General Surgery - POD#3 Patient with no new complaints; asking for something to drink Afebrile, currently 98.2, pulse has improved to 86 (tachycardia significantly reduce); respiratory rate 14, blood pressure 135/90. SPO2 on room air 99%. Lungs: Clear, significantly improved inspiratory effort Abdomen: A few active bowel sounds but no flatus or BM. Soft, minimal incisional pain. Incision clean and dry CHELA drain: 130 mL 4 calendar day 02/27/17; 100 mL so far today - fluid remained serosanguineous Urine output: 2575 mL for calendar day 02/27/17; 350 mL so far today Labs: White count 13.4, slowly diminishing; hemoglobin 10.9 with hematocrit 34.2 Neutrophils slowly diminishing, 10.2% monocytes also slightly improved to 1.7 % Electrolytes, BUN, creatinine within normal limits Accu-Cheks 120-143 Impression: Postoperative day 3, status post sigmoid colectomy with stapled colocolonic anastomosis; repair of lacerated left ureter. Surgery was extremely difficult requiring a prolonged resection due to the presence of diverticulitis with a pericolic abscess. Despite this the patient is making a satisfactory recovery Postoperative day 3, however, ATB day #8 - in light of the intra operative findings and the intra operative left ureteral injury - continue ATB Post op anemia - likely a combination of intra operative blood loss and dilution. Plan: remove Camacho in AM allow increased ice chip intake but limit to 3 cups per shift. Objective Vital Signs - Last 8 Hours Temp Pulse Resp BP Pulse Ox 02/28/17 10:54 98.2 F 86 14 135/90 99 Intake and Output 02/27/17 02/28/17 02/28/17 23:59 07:59 15:59 Intake Total 200 / 200 1100 / 1100 200 / 200 Output Total 450 / 450 200 / 200 250 / 250 Balance -250 / -250 900 / 900 -50 / -50 Intake: IV Fluids 200 / 200 1100 / 1100 200 / 200 D5% And 0.45% Nacl 1000 1000 / 1000 Ml Bag 1,000 ML @ 75 mls/ hr IVC .[id number] [facility] Rx#: [id number] Flagyl Premix 500 MG/100 100 / 100 100 / 100 100 / 100 ML 500 mg In 100 ml @ 100 mls/hr IVPB Q6H [facility] Rx#: [id number] Zosyn 3.375 GM In 100 / 100 100 / 100 Dextrose 5% (Minibag+) 100 ML 100 ML @ 25 mls/hr IVPB Q8H [facility] Rx#: [id number] Oral 0 / 0 0 / 0 0 / 0 Output: Urine 0 / 0 0 / 0 Catheter 450 / 450 200 / 200 150 / 150 Wound Drainage 0 / 0 100 / 100 Medial Abdomen 0 / 0 100 / 100 Other: Meal Lunch NPO Weight 127.9 kg Blood Glucose* 121 122 143 Patient Weight 02/28/17 23:59 Weight 127.9 kg - Labs 02/28/17 04:30 02/28/17 04:30 Diabetes panel 02/28/17 Range/Units 04:30 Sodium 138 (136-145) mEq/L Potassium 3.8 (3.5-4.5) mEq/L Chloride 104 (98-109) mEq/L Carbon Dioxide 29 (19-29) mEq/L BUN 9 (8-26) mg/dL Creatinine 1.06 (0.72-1.25) mg/dL Glucose 125 H (70-99) mg/dL Calcium 8.3 L (8.6-10.8) mg/dL Calcium panel 02/28/17 Range/Units 04:30 Calcium 8.3 L (8.6-10.8) mg/dL Pituitary panel 02/28/17 Range/Units 04:30 Sodium 138 (136-145) mEq/L Potassium 3.8 (3.5-4.5) mEq/L Chloride 104 (98-109) mEq/L Carbon Dioxide 29 (19-29) mEq/L BUN 9 (8-26) mg/dL Creatinine 1.06 (0.72-1.25) mg/dL Glucose 125 H (70-99) mg/dL Calcium 8.3 L (8.6-10.8) mg/dL Adrenal panel 02/28/17 Range/Units 04:30 Sodium 138 (136-145) mEq/L Potassium 3.8 (3.5-4.5) mEq/L Chloride 104 (98-109) mEq/L Carbon Dioxide 29 (19-29) mEq/L BUN 9 (8-26) mg/dL Creatinine 1.06 (0.72-1.25) mg/dL Glucose 125 H (70-99) mg/dL Calcium 8.3 L (8.6-10.8) mg/dL - VTE Documentation of Mechanical Device: Intermittent pneumatic compression device Consult Discharge Plan - Plan Referrals: Sanjay Garcia MD [Non-Partnered Physician] - Deandre Isbell DO [Primary Care Provider] -
[2017-03-01] MEDS: *HR* Metoprolol 5 MG/5 ML VIAL IVP SCH ×5 (00:36→23:40)
[2017-03-01] MEDS: MetroNIDAZOLE 500 MG/100 ML 500 MG/100 ML BAG IVPB SCH ×4 (00:36→20:02)
[2017-03-01] MEDS: Piperacillin/Tazobactam 3.375 GM in D5% in Water (Mini-Bag+) 100 ML IVPB SCH ×3 (03:56→20:16)
[2017-03-01 04:15] LABS: Basophils % 0.3 %; Eosinophils # 0.3 K/mcL (0.0-0.6); Eosinophils % 2.1 %; Hematocrit 34.8 % (37.5-50.1); Hemoglobin 11.1 g/dL (12.9-16.9); Immature Granulocytes % 0.7 % (0-4); Lymphocytes # 1.4 K/mcL (0.6-4.6); Mean Corpuscular HGB Conc 31.9 g/dL (31.6-35.5); Mean Corpuscular Hemoglobin 28.6 pg (28.0-33.3); Mean Corpuscular Volume 89.7 fL (83.0-100.0); Monocytes # 1.4 K/mcL (0.0-1.3); Monocytes % 9.9 %; Neutrophils # 10.6 K/mcL (1.6-8.9); Platelet Count 265 K/mcL (140-400); Red Blood Count 3.88 M/mcL (4.19-5.50); Red Cell Distribution Width 14.4 % (11.5-14.5)
[2017-03-01 04:29] LABS: BUN/Creatinine Ratio 9 (6-26); Blood Urea Nitrogen 11 mg/dL (8-26); Calcium 8.5 mg/dL (8.6-10.8); Carbon Dioxide 29 mEq/L (19-29); Chloride 101 mEq/L (98-109); Glucose 127 mg/dL (70-99); Osmolality,Calculated 283 (280-300); Potassium 3.7 mEq/L (3.5-4.5); Sodium 136 mEq/L (136-145); eGFR For African Americans > 60 (> 60); eGFR For Non-African Americans > 60 (> 60)
[2017-03-01] MEDS: Albuterol 2.5 MG/3 ML NEBULIZER IH SCH ×4 (05:09→21:27)
[2017-03-01] MEDS: *HR* Heparin 5,000 UNIT/ML VIAL SQ SCH ×3 (06:25→22:56)
[2017-03-01] MEDS: Pantoprazole 40 MG VIAL IVP SCH (09:34)
[2017-03-01] MEDS: D5% in 0.45% NACL 1,000 ML IVC SCH (09:45)
[2017-03-01] MEDS ORDERED: D5% in 0.45% NACL 1,000 ML IVC SCH (13:20)
--- NOTE | 2017-03-01 13:26 | General Surgery Progress Note ---
Date of Encounter: 03/01/17 Time of Encounter: 13:21 Subjective Narrative: General Surgery POD #4 Patient remains afebrile, currently 97.6; heart rate ranging from 92-101; respiratory rate 14, blood pressure 156/96; SPO2 on room air 94% Lungs: Clear; adequate inspiratory effort; no obvious abdominal pain with deep inspiration Cardiac: Regular rate with intermittent tachycardia - likely driven by pain and patient anxiety Abdomen: Soft with active bowel sounds. Midline incision clean and dry. Bowel movement earlier today Camacho removed this morning, patient able to void - urine output approximately 850 mL in the last 24 hours; 400 mL so far today CHELA output - 260 mL in the last 24 hours; 75 mL so far today Laboratories: White count 13.8 (unchanged), hemoglobin 11.1, hematocrit 34.8. Neutrophils 10.6 (unchanged) Electrolytes, BUN, creatinine - within acceptable range though creatinine has increased to 1.23. Impression: Postoperative day 4, bowel function returning - patient moved his bowels earlier today. Plan: Allow clear liquid diet; discontinue [employer], begin oral medications Nursery reports patient has not been ambulatory since surgery, he has been OOB to chair The patient is refusing the prescribed subcutaneous heparin Objective Vital Signs - Last 8 Hours Temp Pulse Resp BP Pulse Ox 03/01/17 11:38 97.6 F 101 14 156/96 94 03/01/17 07:55 97.7 F 92 16 123/73 93 03/01/17 05:22 98.3 F 101 18 156/94 96 Intake and Output 02/28/17 03/01/17 03/01/17 23:59 07:59 15:59 Intake Total 1300 / 1300 200 / 200 1100 / 1100 Output Total 380 / 380 435 / 435 315 / 315 Balance 920 / 920 -235 / -235 785 / 785 Intake: IV Fluids 1300 / 1300 200 / 200 1100 / 1100 D5% And 0.45% Nacl 1000 1000 / 1000 1000 / 1000 Ml Bag 1,000 ML @ 75 mls/ hr IVC .[id number] [facility] Rx#: [id number] Flagyl Premix 500 MG/100 200 / 200 200 / 200 ML 500 mg In 100 ml @ 100 mls/hr IVPB Q6H [facility] Rx#: [id number] Zosyn 3.375 GM In 100 / 100 100 / 100 Dextrose 5% (Minibag+) 100 ML 100 ML @ 25 mls/hr IVPB Q8H [facility] Rx#: [id number] Oral 0 / 0 0 / 0 0 / 0 Output: Urine 0 / 0 0 / 0 275 / 275 Catheter 300 / 300 400 / 400 Wound Drainage 80 / 80 35 / 35 40 / 40 Medial Abdomen 80 / 80 35 / 35 40 / 40 Other: Meal NPO Percent of Meal Consumed 5% Stool Size Small Stool Consistency loose Stool Color Brown # Voids 1 Weight 128.6 kg Blood Glucose* 124 144 134 Patient Weight 03/01/17 23:59 Weight 128.6 kg - Labs 03/01/17 04:00 03/01/17 04:00 Diabetes panel 03/01/17 Range/Units 04:00 Sodium 136 (136-145) mEq/L Potassium 3.7 (3.5-4.5) mEq/L Chloride 101 (98-109) mEq/L Carbon Dioxide 29 (19-29) mEq/L BUN 11 (8-26) mg/dL Creatinine 1.23 (0.72-1.25) mg/dL Glucose 127 H (70-99) mg/dL Calcium 8.5 L (8.6-10.8) mg/dL Calcium panel 03/01/17 Range/Units 04:00 Calcium 8.5 L (8.6-10.8) mg/dL Pituitary panel 03/01/17 Range/Units 04:00 Sodium 136 (136-145) mEq/L Potassium 3.7 (3.5-4.5) mEq/L Chloride 101 (98-109) mEq/L Carbon Dioxide 29 (19-29) mEq/L BUN 11 (8-26) mg/dL Creatinine 1.23 (0.72-1.25) mg/dL Glucose 127 H (70-99) mg/dL Calcium 8.5 L (8.6-10.8) mg/dL Adrenal panel 03/01/17 Range/Units 04:00 Sodium 136 (136-145) mEq/L Potassium 3.7 (3.5-4.5) mEq/L Chloride 101 (98-109) mEq/L Carbon Dioxide 29 (19-29) mEq/L BUN 11 (8-26) mg/dL Creatinine 1.23 (0.72-1.25) mg/dL Glucose 127 H (70-99) mg/dL Calcium 8.5 L (8.6-10.8) mg/dL - VTE Documentation of Mechanical Device: Intermittent pneumatic compression device Consult Discharge Plan - Plan Referrals: Sanjay Garcia MD [Non-Partnered Physician] - Deandre Isbell DO [Primary Care Provider] -
--- NOTE | 2017-03-01 14:48 | Internal Med Progress Note ---
Date of Encounter: 03/01/17 Time of Encounter: 09:00 - Assessment and plan (1) Colonic mass Current Visit: Yes Status: Acute Assessment and plan: Postop day 4. Continue current management per surgery recommendations. (2) Hypertension Current Visit: Yes Status: Chronic Assessment and plan: Blood pressure intermittently elevated. Continue IV lopressor and hydralazine for now. Qualifiers: Hypertension type: essential hypertension Qualified Code(s): I10 - Essential (primary) hypertension (3) Constipation due to outlet obstruction Current Visit: Yes Status: Resolved (4) Transection of ureter of left [place] kidney Current Visit: Yes Status: Acute Assessment and plan: Fixed with surgery. Having good urine output. Qualifiers: Encounter type: initial encounter Qualified Code(s): S37.10XA - Unspecified injury of ureter, initial encounter (5) DVT prophylaxis Current Visit: Yes Status: Acute Assessment and plan: On subcutaneous heparin but patient has been refusing - Subjective Interval history: Patient continues to have abdominal pain but this is better controlled. Camacho catheter removed this morning and patient has had good urine output since then. Has not had any bowel movements yet. No flatus yet. Feels hungry and has been tolerating ice chips well. - Constitutional Vitals: Temp Pulse Resp BP Pulse Ox 97.6 F 101 14 156/96 94 03/01/17 11:38 03/01/17 11:38 03/01/17 11:38 03/01/17 11:38 03/01/17 11:38 General appearance: Present: mild distress, A&O X 3, obese, answers questions appropriately - Neck Neck exam general surgery: Present: supple, trachea midline. Absent: lymphadenopathy - Respiratory Respiratory exam: Present: CTAB. Absent: accessory muscle use, rales, rhonchi, wheezes - Cardiovascular Cardiovascular exam: Present: RRR, +S1, +S2. Absent: diastolic murmur, gallop, rubs, systolic murmur - GI/Abdominal GI/Abdominal exam: Present: normal bowel sounds, soft, tenderness, no peritoneal signs. Absent: distended Additional comments: Median abdominal incision healing well. - Extremities Exam Extremities exam: Present: pedal edema, warm, radial pulses palpable and symmetrical. Absent: calf tenderness, cyanotic - Skin Skin exam: Present: dry, intact Internal Medicine: Result - Labs CBC & Chem 7: 03/01/17 04:00 08/10/17 04:00 Labs: Short CBC 03/01/17 Range/Units 04:00 WBC 13.8 H (4.3-11.1) K/mcL Hgb 11.1 L (12.9-16.9) g/dL Hct 34.8 L (37.5-50.1) % Plt Count 265 (140-400) K/mcL Neutrophils # 10.6 H (1.6-8.9) K/mcL BMP 03/01/17 04:00 Sodium 136 Potassium 3.7 Chloride 101 Carbon Dioxide 29 BUN 11 Creatinine 1.23 Glucose 127 H Calcium 8.5 L - ABG Interpretation ABG results: PT/INR, D-dimer PT 11.9 Seconds (9.4-12.1) 02/22/17 03:50 - VTE Documentation of Mechanical Device: Intermittent pneumatic compression device Consult Discharge Plan - Plan Referrals: Sanjay Garcia MD [Non-Partnered Physician] - Deandre Isbell DO [Primary Care Provider] -
[2017-03-01] MEDS: Ondansetron 4 MG/2 ML VIAL IVP PRN (15:41)
[2017-03-01] MEDS: *HR* HYDROmorphone (PF) 1 MG/ML SYRINGE IVP PRN ×2 (16:59→19:55)
[2017-03-02] MEDS: *HR* HYDROmorphone (PF) 1 MG/ML SYRINGE IVP PRN ×3 (01:14→06:19)
[2017-03-02] MEDS: MetroNIDAZOLE 500 MG/100 ML 500 MG/100 ML BAG IVPB SCH ×2 (01:14→07:07)
[2017-03-02] MEDS: Piperacillin/Tazobactam 3.375 GM in D5% in Water (Mini-Bag+) 100 ML IVPB SCH (02:51)
[2017-03-02] MEDS: *HR* OxyCODONE/APAP 5/325 TABLET PO PRN ×4 (03:16→17:49)
[2017-03-02] MEDS: Albuterol 2.5 MG/3 ML NEBULIZER IH SCH ×2 (04:07→10:15)
[2017-03-02] MEDS: *HR* Metoprolol 5 MG/5 ML VIAL IVP SCH (06:09)
[2017-03-02] MEDS: *HR* Heparin 5,000 UNIT/ML VIAL SQ SCH ×2 (06:09→13:19)
[2017-03-02] MEDS: Pantoprazole 40 MG VIAL IVP SCH (09:43)
[2017-03-02] MEDS: Losartan/HCTZ 50-12.5 TABLET PO SCH (09:43)
--- NOTE | 2017-03-02 10:29 | Urology Progress Note ---
Date of Encounter: 03/02/17 Time of Encounter: 10:27 - Assessment and Plan (1) Transection of ureter of left [place] kidney Current Visit: Yes Status: Acute Assessment and plan: POD #5 s/p left U-U. 1. Doing well. 2. CHELA removed. 3. He can follow up in 2 weeks for a post op check. 4. Stent will be removed in 6 weeks in the office. 5. Will check renal bladder ultrasound as an outpatient about 1 month after stent removal. 6. will sign off. Qualifiers: Encounter type: initial encounter Qualified Code(s): S37.10XA - Unspecified injury of ureter, initial encounter Progress Note Narrative: Doing well. POD #5 s/p left uretero-ureterostomy. CHELA creatinine has been normal since removal of Camacho. He is urinating well. CHELA removed today. Objective Initial Vital Signs Temp Pulse Resp BP Pulse Ox 97.6 F 90 18 148/92 94 02/19/17 08:57 02/19/17 08:57 02/19/17 08:57 02/19/17 08:57 02/19/17 08:57 - General physical appearance Present: well developed, well nourished, no distress - Respiratory Present: normal respiratory effort - Abdomen Present: soft (Inc is clean, dry, intact. CHELA serosanguinous. CHELA removed.) - Labs 03/01/17 04:00 03/01/17 04:00 - VTE Documentation of Mechanical Device: Intermittent pneumatic compression device Consult Discharge Plan - Plan Referrals: Sanjay Garcia MD [Non-Partnered Physician] - Deandre Isbell DO [Primary Care Provider] -
--- NOTE | 2017-03-02 11:22 | General Surgery Progress Note ---
Date of Encounter: 03/02/17 Time of Encounter: 10:45 Subjective Patient reports: no new complaints, tolerating liquids well Narrative: General Surgery - POD #5 Patient feeling well, anxious to be discharged home. Tolerating clear liquids with minimal crampy abdominal pain, no nausea or vomiting. Afebrile, currently 97.7; pulse 90-97, respirations 18, blood pressure 144/ 90. SPO2 on room air 96% Lungs: Clear with good inspiratory effort; no obvious abdominal pain with deep inspiration Abdomen: Soft, active bowel sounds. Midline incision clean and dry. Patient passing flatus; bowel movement yesterday Pelvic drain removed by Dr. Connolly - drainage was approximately 155 mL for calendar day 03/01/17; 60 mL for today prior to removal Urine output approximate 400 mL for the last 24 hours Impression: Postoperative day 5 status post open sigmoid colectomy for acute and chronic diverticulitis and pericolic abscess, stapled colocolonic anastomosis; intraoperative uretero ureterostomy to repair left ureter, intraoperative rigid sigmoidoscopy, and incidental appendectomy. Acceptable postoperative status. Plan: Discontinue IV fluids and IV meds including antibiotics full liquid diet and advance to regular as tolerated resume home meds if stable - discharge home in AM Objective Vital Signs - Last 8 Hours Temp Pulse Resp BP Pulse Ox 03/02/17 06:31 97.7 F 90 18 144/90 96 03/02/17 06:05 150/78 03/02/17 03:17 98.1 F 97 18 111/58 94 Intake and Output 03/01/17 03/02/17 03/02/17 23:59 07:59 15:59 Intake Total 100 / 100 300 / 300 100 / 100 Output Total 410 / 410 800 / 800 60 / 60 Balance -310 / -310 -500 / -500 40 / 40 Intake: IV Fluids 100 / 100 300 / 300 100 / 100 Flagyl Premix 500 MG/100 100 / 100 100 / 100 100 / 100 ML 500 mg In 100 ml @ 100 mls/hr IVPB Q6H [facility] Rx#: [id number] Zosyn 3.375 GM In 200 / 200 Dextrose 5% (Minibag+) 100 ML 100 ML @ 25 mls/hr IVPB Q8H [facility] Rx#: [id number] Oral 0 / 0 Output: Urine 350 / 350 800 / 800 Wound Drainage 60 / 60 0 / 0 60 / 60 Medial Abdomen 60 / 60 0 / 0 60 / 60 Other: # Voids 1 Weight 127.5 kg Patient Weight 03/02/17 23:59 Weight 127.5 kg - Labs 03/01/17 04:00 03/01/17 04:00 - VTE Documentation of Mechanical Device: Intermittent pneumatic compression device Consult Discharge Plan - Plan Referrals: Sanjay Garcia MD [Non-Partnered Physician] - Deandre Isbell DO [Primary Care Provider] -
--- NOTE | 2017-03-02 11:29 | Internal Med Progress Note ---
Date of Encounter: 03/02/17 Time of Encounter: 08:00 - Assessment and plan (1) Colonic mass Current Visit: Yes Status: Acute Assessment and plan: Postop day 5. Clinically improving. Tolerating clear liquid diet. Continue to advance diet as tolerated. (2) Hypertension Current Visit: Yes Status: Chronic Assessment and plan: Blood pressure remains elevated. Placed back on Hyzaar. Blood pressure remains elevated, we will start low-dose Lopressor. Qualifiers: Hypertension type: essential hypertension Qualified Code(s): I10 - Essential (primary) hypertension (3) Constipation due to outlet obstruction Current Visit: Yes Status: Resolved (4) Transection of ureter of left [place] kidney Current Visit: Yes Status: Acute Assessment and plan: Having good urine output. Urology has now signed off. He will follow up with urology in 2 weeks. Qualifiers: Encounter type: initial encounter Qualified Code(s): S37.10XA - Unspecified injury of ureter, initial encounter (5) DVT prophylaxis Current Visit: Yes Status: Acute Assessment and plan: On subcutaneous heparin - Subjective Interval history: Patient is sitting up in chair. Tolerating clear liquid diet well. Pain is well controlled. Having good urine output. No complaints at this time. Had 2 bowel movements yesterday. - Constitutional Vitals: Temp Pulse Resp BP Pulse Ox 97.7 F 90 18 144/90 96 03/02/17 06:31 03/02/17 06:31 03/02/17 06:31 03/02/17 06:31 03/02/17 06:31 General appearance: Present: mild distress, A&O X 3, obese, answers questions appropriately - Respiratory Respiratory exam: Present: CTAB. Absent: accessory muscle use, rales, rhonchi, wheezes - Cardiovascular Cardiovascular exam: Present: RRR, +S1, +S2. Absent: diastolic murmur, gallop, rubs, systolic murmur - GI/Abdominal GI/Abdominal exam: Present: normal bowel sounds, soft, tenderness, no peritoneal signs. Absent: distended Additional comments: Mild abdominal tenderness. - Extremities Exam Extremities exam: Present: warm, radial pulses palpable and symmetrical. Absent : calf tenderness, cyanotic, pedal edema - Neurological Exam Neurological exam: Present: alert, oriented X3, no focal deficits. Absent: speech deficit Internal Medicine: Result - Labs CBC & Chem 7: 03/01/17 04:00 03/01/17 04:00 - ABG Interpretation ABG results: PT/INR, D-dimer PT 11.9 Seconds (9.4-12.1) 02/22/17 03:50 - VTE Documentation of Mechanical Device: Intermittent pneumatic compression device Consult Discharge Plan - Plan Referrals: Sanjay Garcia MD [Non-Partnered Physician] - Deandre Isbell DO [Primary Care Provider] -
[2017-03-02] MEDS: Metoprolol XL (24 HR) Succ 25 MG TAB.ER.24H PO SCH (11:51)
[2017-03-02] MEDS: Acetaminophen 325 MG TABLET PO PRN (20:14)
[2017-03-02] MEDS ORDERED: *HR* HYDROmorphone (PF) 1 MG/ML SYRINGE IVP ONE (21:03)
[2017-03-03] MEDS: *HR* OxyCODONE/APAP 5/325 TABLET PO PRN ×4 (01:20→14:00)
[2017-03-03] MEDS: *HR* Heparin 5,000 UNIT/ML VIAL SQ SCH ×4 (01:22→22:11)
[2017-03-03 05:31] LABS: Basophils % 0.2 %; Eosinophils # 0.2 K/mcL (0.0-0.6); Eosinophils % 1.6 %; Hematocrit 36.7 % (37.5-50.1); Immature Granulocytes % 0.6 % (0-4); Immature Platelets 4.1 % (1.1-6.1); Lymphocytes # 0.8 K/mcL (0.6-4.6); Lymphocytes % 6.2 %; Mean Corpuscular HGB Conc 32.7 g/dL (31.6-35.5); Mean Corpuscular Hemoglobin 29.2 pg (28.0-33.3); Mean Corpuscular Volume 89.3 fL (83.0-100.0); Mean Platelet Volume 10.3 fL (9.4-12.4); Monocytes # 1.3 K/mcL (0.0-1.3); Monocytes % 9.6 %; Neutrophils # 10.8 K/mcL (1.6-8.9); Platelet Count 301 K/mcL (140-400); Red Blood Count 4.11 M/mcL (4.19-5.50); Red Cell Distribution Width 14.6 % (11.5-14.5); Segmented Neutrophils % 81.8 %
[2017-03-03] MEDS: Losartan/HCTZ 50-12.5 TABLET PO SCH (08:01)
[2017-03-03] MEDS: Metoprolol XL (24 HR) Succ 25 MG TAB.ER.24H PO SCH (08:01)
[2017-03-03 09:23] LABS: BUN/Creatinine Ratio 7 (6-26); Blood Urea Nitrogen 7 mg/dL (8-26); Carbon Dioxide 30 mEq/L (19-29); Chloride 98 mEq/L (98-109); Glucose 111 mg/dL (70-99); Osmolality,Calculated 283 (280-300); Potassium 3.3 mEq/L (3.5-4.5); Sodium 137 mEq/L (136-145); eGFR For African Americans > 60 (> 60); eGFR For Non-African Americans > 60 (> 60)
[2017-03-03] MEDS: *HR* HYDROmorphone 2 MG/ML SYRINGE IVP PRN ×3 (10:11→16:41)
--- NOTE | 2017-03-03 10:43 | General Surgery Progress Note ---
Date of Encounter: 03/03/17 Time of Encounter: 10:00 Subjective Narrative: General Surgery - POD # 6 patient c/o severe cramping abdominal pain in the LUQ not relieved by oral meds. No N/V. Passing copious flatus. Likely resumption of bowel activity but will obtain CT to assess further KUB this AM demonstrates air/gas throughout the small bowel and colon consistent with a post op ileus Afebrile, currently 98.1, pulse 108 (range 88-108), respiration 16, blood pressure 124/76. SPO2 on room air 95% Lungs: Clear to auscultation Abdomen: Tenderness in the right upper quadrant but no discernible masses. Active bowel sounds. During my examination, passage of flatus Midline incision - clean and dry. No obvious fascial defects. Laboratories: White count 13.2; hemoglobin 12.0, hematocrit 36.7, platelet count 301,000; neutrophils 10.8% Electrolytes notable for potassium 3.3 Impression: Postoperative day #6 status post open sigmoid colectomy for acute and chronic diverticulitis and pericolic abscess. Stapled colocolonic anastomosis with intraoperative ureteroureterostomy to repair left ureter injured during the dissection of the sigmoid colon. Intraoperative rigid sigmoidoscopy and incidental appendectomy. The patient was experiencing significant cramping abdominal pain with KUB findings of a postoperative ileus. The surgery was quite difficult due to the significant inflammation surrounding the sigmoid with dense adhesions to the urinary bladder anteriorly, small bowel to the right, and the pelvic wall including the ureter on the left. The patient's current complaints appear to be due to resumption of bowel activity but a CT of the abdomen and pelvis will be obtained to assess the surgical site more completely. Hypokalemia to be addressed with oral and IV potassium Objective Vital Signs - Last 8 Hours Temp Pulse Resp BP Pulse Ox 03/03/17 06:42 98.1 F 108 16 124/76 95 03/03/17 03:26 98.4 F 91 17 130/81 95 Intake and Output 03/02/17 03/03/17 03/03/17 23:59 07:59 15:59 Intake Total 0 / 0 0 / 0 0 / 0 Output Total 200 / 200 0 / 0 Balance -200 / -200 0 / 0 0 / 0 Intake: Oral 0 / 0 0 / 0 0 / 0 Output: Urine 200 / 200 0 / 0 Other: Meal Patient refused breakfast Percent of Meal Consumed 0% Weight 125 kg Patient Weight 03/03/17 23:59 Weight 125 kg - Labs 03/03/17 04:50 03/03/17 04:50 Diabetes panel 03/03/17 Range/Units 04:50 Sodium 137 (136-145) mEq/L Potassium 3.3 L (3.5-4.5) mEq/L Chloride 98 (98-109) mEq/L Carbon Dioxide 30 H (19-29) mEq/L BUN 7 L (8-26) mg/dL Creatinine 0.94 (0.72-1.25) mg/dL Glucose 111 H (70-99) mg/dL Calcium 9.0 (8.6-10.8) mg/dL Calcium panel 03/03/17 Range/Units 04:50 Calcium 9.0 (8.6-10.8) mg/dL Pituitary panel 03/03/17 Range/Units 04:50 Sodium 137 (136-145) mEq/L Potassium 3.3 L (3.5-4.5) mEq/L Chloride 98 (98-109) mEq/L Carbon Dioxide 30 H (19-29) mEq/L BUN 7 L (8-26) mg/dL Creatinine 0.94 (0.72-1.25) mg/dL Glucose 111 H (70-99) mg/dL Calcium 9.0 (8.6-10.8) mg/dL Adrenal panel 03/03/17 Range/Units 04:50 Sodium 137 (136-145) mEq/L Potassium 3.3 L (3.5-4.5) mEq/L Chloride 98 (98-109) mEq/L Carbon Dioxide 30 H (19-29) mEq/L BUN 7 L (8-26) mg/dL Creatinine 0.94 (0.72-1.25) mg/dL Glucose 111 H (70-99) mg/dL Calcium 9.0 (8.6-10.8) mg/dL - VTE Documentation of Mechanical Device: Intermittent pneumatic compression device Consult Discharge Plan - Plan Referrals: Sanjay Garcia MD [Non-Partnered Physician] - Deandre Isbell DO [Primary Care Provider] -
--- NOTE | 2017-03-03 11:39 | Internal Med Progress Note ---
Date of Encounter: 03/03/17 Time of Encounter: 09:15 - Assessment and plan (1) Colonic mass Current Visit: Yes Status: Acute Assessment and plan: Complains of increased abdominal pain and distention. KUB shows ileus with air under the diaphragm from recent surgery. CT scan of the abdomen and pelvis shows similar findings with pneumoperitoneum slightly more prominent than usual for surgery performed 6 days prior. Surgery following. We will follow their recommendations. For now continue supportive care. Pain control. (2) Hypertension Current Visit: Yes Status: Chronic Assessment and plan: Blood pressure is better controlled now. Qualifiers: Hypertension type: essential hypertension Qualified Code(s): I10 - Essential (primary) hypertension (3) Constipation due to outlet obstruction Current Visit: Yes Status: Resolved (4) Transection of ureter of left [place] kidney Current Visit: Yes Status: Acute Assessment and plan: Follow-up outpatient with urology. Status postsurgical repair and ureteral stent. Qualifiers: Encounter type: initial encounter Qualified Code(s): S37.10XA - Unspecified injury of ureter, initial encounter (5) DVT prophylaxis Current Visit: Yes Status: Acute - Subjective Interval history: Patient had a rough Night with significant abdominal pain and complaints of gas pains and abdominal distention. No fever or chills reported overnight. No trouble with passing urine. - Constitutional Vitals: Temp Pulse Resp BP Pulse Ox 98.2 F 108 18 110/72 92 03/03/17 11:00 03/03/17 11:00 03/03/17 11:00 03/03/17 11:00 03/03/17 11:00 General appearance: Present: mild distress, A&O X 3, obese, answers questions appropriately - Respiratory Respiratory exam: Present: CTAB. Absent: accessory muscle use, rales, rhonchi, wheezes - Cardiovascular Cardiovascular exam: Present: RRR, +S1, +S2. Absent: diastolic murmur, gallop, rubs, systolic murmur - GI/Abdominal GI/Abdominal exam: Present: diminished bowel sounds, distended, soft, tenderness (Generalized), no peritoneal signs - Extremities Exam Extremities exam: Present: warm, radial pulses palpable and symmetrical. Absent : calf tenderness, cyanotic, pedal edema - Neurological Exam Neurological exam: Present: alert, oriented X3, no focal deficits. Absent: speech deficit Internal Medicine: Result - Labs CBC & Chem 7: 08/12/17 04:50 03/03/17 04:50 Labs: Short CBC 03/03/17 Range/Units 04:50 WBC 13.2 H (4.3-11.1) K/mcL Hgb 12.0 L (12.9-16.9) g/dL Hct 36.7 L (37.5-50.1) % Plt Count 301 (140-400) K/mcL Neutrophils # 10.8 H (1.6-8.9) K/mcL BMP 03/03/17 04:50 Sodium 137 Potassium 3.3 L Chloride 98 Carbon Dioxide 30 H BUN 7 L Creatinine 0.94 Glucose 111 H Calcium 9.0 - ABG Interpretation ABG results: PT/INR, D-dimer PT 11.9 Seconds (9.4-12.1) 02/22/17 03:50 - Impressions Impressions KUB X-Ray 03/03/17 09:18 IMPRESSION: Bowel-gas pattern most likely represents ileus. Extraluminal gas in the left side of the abdomen is of uncertain significance, possibly related to recent abdominal surgery. CT with contrast may be helpful to better clarify the significance of this finding D/ / Agapito Guzman MD / Agapito Guzman MD Interpreting Provider: Agapito Guzman MD Abdomen/Pelvis CT 03/03/17 10:07 IMPRESSION: 1. Postoperative changes as discussed 2. Large pneumoperitoneum, with bubbles of extraluminal gas throughout the abdomen and pelvis. In addition, there is free fluid in the abdomen and pelvis. The amount of pneumoperitoneum is felt to be prominent for surgical procedure performed 6 days ago, an the possibility of anastomotic leak is a consideration. That possibility may be better assessed with CT of the abdomen with oral contrast to evaluate for contrast leak 3. Nonspecific wall thickening of distal ileum likely inflammatory 4. Intestinal distention favored to represent ileus D/ / Agapito Guzman MD / Agapito Guzman MD Interpreting Provider: Agapito Guzman MD - VTE Documentation of Mechanical Device: Intermittent pneumatic compression device Consult Discharge Plan - Plan Referrals: Sanjay Garcia MD [Non-Partnered Physician] - Deandre Isbell DO [Primary Care Provider] -
[2017-03-03] MEDS: *HR* HYDROmorphone (PF) 1 MG/ML SYRINGE IVP PRN (20:34)
[2017-03-04] MEDS: *HR* HYDROmorphone (PF) 1 MG/ML SYRINGE IVP PRN (00:10)
[2017-03-04] MEDS: *HR* OxyCODONE/APAP 5/325 TABLET PO PRN ×2 (03:16→07:17)
[2017-03-04] MEDS: *HR* Heparin 5,000 UNIT/ML VIAL SQ SCH (06:10)
[2017-03-04] MEDS: Acetaminophen 325 MG TABLET PO PRN (06:11)
[2017-03-04] MEDS: Metoprolol XL (24 HR) Succ 25 MG TAB.ER.24H PO SCH (07:18)
[2017-03-04] MEDS: Losartan/HCTZ 50-12.5 TABLET PO SCH (07:18)
[2017-03-04 07:24] VITALS: BP 110/74
--- NOTE | 2017-03-04 10:15 | General Surgery Progress Note ---
Date of Encounter: 03/04/17 Time of Encounter: 09:45 Subjective Patient reports: feels better, tolerating a regular diet Narrative: General Surgery: POD#7 Patient feeling much better; cramping abdominal pain resolved. No N/V. Tolerating regular diet Afebrile, pulse 90 (range 90-110, respirations 17, blood pressure 110/74, SPO2 on room air 93% Lungs: Clear, no obvious abdominal pain and deep inspiration Abdomen: Soft; active bowel sounds; midline incision clean and dry. Urine output 1575 mL in the last 24 hours; bowels also moving. Nursing report moderate loosely with brown/black BM Labs: Potassium corrected to 4.0 Impression: Postoperative day 7 - status post sigmoid colectomy with stapled colocolostomy for acute and chronic diverticulitis and pericolic abscess. The patient had significant inflammatory response to the diverticulitis and pericolic abscess requiring an extended dissection. During that extended dissection, the left ureter was injured as was the distal ileum requiring a ureteroureterostomy and small bowel resection with stapled enteroenterostomy. Incidental appendectomy was completed at the time of the sigmoid colectomy. Intraoperative rigid sigmoidoscopy demonstrated an intact anastomosis, however, CT completed yesterday showed a large amount of air in the upper abdomen as well as multiple bubbles of extraluminal air throughout the abdomen and retroperitoneum. The bubbles throughout the abdomen and retroperitoneum are consistent with the surgery. The described large pneumoperitoneum is concerning for an anastomotic leak but the patient is not symptomatic. The patient's status is sufficient for discharge home with outpatient follow-up. This has been discussed with Dr. Victor. The patient is deemed medically stable for discharge. The patient will follow up with me on 03/08/17 The patient may consume a regular diet, he may shower and wash the midline incision with soap and water Activities may be resumed as tolerated; lifting is limited to less than 20 pounds. The patient may resume his home meds. Tylenol, ibuprofen, Motrin, Advil, Aleve, etc. is recommended for mild-to- moderate pain Percocet will be prescribed for pain not relieved by [id number] medications. Objective Vital Signs - Last 8 Hours Temp Pulse Resp BP Pulse Ox 03/04/17 07:22 97.7 F 90 17 110/74 93 03/04/17 03:14 98.2 F 104 20 119/77 93 Intake and Output 03/03/17 03/04/17 03/04/17 23:59 07:59 15:59 Intake Total 0 / 0 0 / 0 Output Total 1 / 1 0 / 0 Balance -1 / -1 0 / 0 0 / 0 Intake: Oral 0 / 0 0 / 0 Output: Urine 0 / 0 0 / 0 Urine/Stool Mix Other: Meal Dinner Breakfast Percent of Meal Consumed 0% 50% Stool Size Moderate Small Stool Consistency loose loose liquid Stool Color Brown Brown Black Black Weight 125.8 kg Patient Weight 03/04/17 23:59 Weight 125.8 kg - Labs 03/03/17 04:50 03/04/17 03:20 Diabetes panel 03/04/17 Range/Units 03:20 Potassium 4.0 (3.5-4.5) mEq/L Pituitary panel 03/04/17 Range/Units 03:20 Potassium 4.0 (3.5-4.5) mEq/L Adrenal panel 03/04/17 Range/Units 03:20 Potassium 4.0 (3.5-4.5) mEq/L - VTE Documentation of Mechanical Device: Intermittent pneumatic compression device Consult Discharge Plan - Plan Referrals: Sanjay Garcia MD [Non-Partnered Physician] - Deandre Isbell DO [Primary Care Provider] -
--- NOTE | 2017-03-04 10:20 | Discharge Summary ---
Date of Encounter: 03/04/17 Time of Encounter: 10:17 - Discharge Diagnosis (1) Diverticulitis large intestine Priority: Primary Status: Acute Qualifiers: Diverticulitis bleeding: without bleeding Diverticulitis complication: with abscess Qualified Code(s): K57.20 - Diverticulitis of large intestine with perforation and abscess without bleeding (2) Colonic mass Priority: Secondary Status: Chronic (3) Hypertension Priority: Secondary Status: Chronic Qualifiers: Hypertension type: essential hypertension Qualified Code(s): I10 - Essential (primary) hypertension (4) Constipation due to outlet obstruction Priority: Secondary Status: Resolved (5) Transection of ureter of left [place] kidney Priority: Secondary Status: Acute Qualifiers: Encounter type: initial encounter Qualified Code(s): S37.10XA - Unspecified injury of ureter, initial encounter (6) DVT prophylaxis Priority: Secondary Status: Acute - Discharge Medications Prescriptions: OxyCODONE/APAP 5/325 [Percocet 5/325 MG] 1 each PO Q4HR PRN #24 tab PRN Reason: pain not relieved by Tylenol Metoprolol XL (24 HR) Succ [Toprol Xl] 25 mg PO DAILY #30 tab Home Medications: Losartan/HCTZ [Hyzaar 50-12.5 Tablet] 1 tab PO DAILY 02/19/17 [History] Omeprazole [PriLOSEC] 20 mg PO DAILY 02/19/17 [History] Metoprolol XL (24 HR) Succ [Toprol Xl] 25 mg PO DAILY #30 tab 03/04/17 [Rx] OxyCODONE/APAP 5/325 [Percocet 5/325 MG] 1 each PO Q4HR PRN #24 tab 03/04/17 [Rx ] Allergies/Adverse Reactions: Allergies No Known Allergies Allergy (Verified 02/19/17 08:59) Procedures/tests Complete & Pending: Procedures Performed prior 72 hours Category Date Time Status CT abd pelvis wo no iv no oral [CT] Stat Cat Scan 03/03/17 10:07 Completed Date of admission: 02/19/17 17:04 Primary care physician: Jaqueline Bradley Consults: 02/20/17 07:23 Consult to Urology [CONS] Routine Consulting Provider: Urology [facility] Reason for Consult: bladder mass, probably needs cystoscopy Call Completed: No 02/20/17 14:42 Consult to Surgery [CONS] Routine Consulting Provider: Surgery Jay Surg - Radha Reason for Consult: Colon mass Call Completed: Yes 03/01/17 09:04 Consult to Occupational Therapy [CONS] Routine Comment: Evaluate, develop and implement POC Reason for Consult: Post op weakness Consult to Physical Therapy [CONS] Routine Comment: Evaluate, develop and implement POC Reason for Consult: Post op weakness Discharging clinician: Rasheed Victor Anticipated date of discharge: 03/04/17 - Patient Status Disposition: Home, Self-Care Condition: Good Functional capacity at discharge: independent ambulation Overall status at discharge: patient is progressing back to baseline - Discharge Instructions Follow Up With: Sanjay Garcia MD [Non-Partnered Physician] - Deandre Isbell DO [Primary Care Provider] - (In 1-2 weeks) - Diet and Activity Activity: increase activity as tolerated Diet: low fat, low cholesterol, low salt diet Hospital course: Mr. Allen is a 46 year old male patient with history of essential hypertension who was admitted here with complaints of abdominal pain which was waxing and waning in severity. CT scan of the abdomen and pelvis and in the ER showed possible masslike area in the rectosigmoid colon which was highly suspicious for a neoplastic mass. Gastroenterology was consulted for this. Patient underwent colonoscopy and was found to have a large obstructing mass in the rectosigmoid colon which was nearly filling the lumen. This was biopsied. Pathology results of this mass showed a hyperplastic polyp. Surgery was also consulted for further evaluation and a repeat CT scan of the abdomen and pelvis was ordered which again showed a large abnormal soft tissue density in the region of the sigmoid colon which was concerning for large neoplasm. Patient then underwent surgery for this mass with exploratory celiotomy and lysis of adhesions along with sigmoid colectomy and stapled coloanal colonic anastomosis with small bowel resection with stapled enteroenterostomy, incidental appendectomy. During exploration, the patient's left ureter was transected which was repaired by urology. Since then the patient has been recovering in the hospital slowly. Pathology results from this surgery showed the presence of chronic diverticulitis with ulcerated inflammatory polyps and pericolic abscesses. There was no signs of malignancy. So the lesion appears to be a result of acute and chronic diverticulitis with pericolic abscess with significant improvement inflammatory response. Initially, the patient's pain required treatment with Dilaudid ACADEMIC PHYSICIAN. He has now been transitioned to oral medications and is doing well. He did have an episode of worsening abdominal pain and distention yesterday and a CT scan of the abdomen and KUB x-ray of the abdomen were done. The CT scan did show a large amount of air in the upper abdomen along with extraluminal air throughout the abdomen and retroperitoneum which are likely from the recent surgery. There was also concern for possible anastomotic leak but patient is no longer symptomatic. He is tolerating diet well and having bowel movements. He has been cleared for discharge by surgery and will follow up with Dr. Garcia next week. - Time Spent with Patient Total time spent providing and/or coordinating discharge services: Greater than 30 minutes (40 min) - Constitutional Vitals: Temp Pulse Resp BP Pulse Ox 97.7 F 90 17 110/74 93 03/04/17 07:22 03/04/17 07:22 03/04/17 07:22 03/04/17 07:22 03/04/17 07:22 General appearance: Present: A&O X 3, no acute distress, obese, answers questions appropriately - Neck Neck exam general surgery: Present: supple, trachea midline. Absent: lymphadenopathy - Respiratory Respiratory exam: Present: CTAB. Absent: accessory muscle use, rales, rhonchi, wheezes - Cardiovascular Cardiovascular exam: Present: RRR, +S1, +S2. Absent: diastolic murmur, gallop, rubs, systolic murmur - GI/Abdominal GI/Abdominal exam: Present: normal bowel sounds, soft, no peritoneal signs. Absent: distended, tenderness Additional comments: Abdominal incision healing well. - Extremities Exam Extremities exam: Present: warm, radial pulses palpable and symmetrical. Absent : calf tenderness, cyanotic, pedal edema - VTE Documentation of Mechanical Device: Intermittent pneumatic compression device
== END 2017-03-04 10:55 | disposition home or self-care (01) | DRG 330 ==
LOC: 3ANU 08:52 → EMEROO 08:52 → 3ANU 15:11 → SUATTDRO 17:04
PROVIDERS: ADMIT Internal Medicine; ATTEND Internal Medicine